=== PATIENT | male | born 1975 ===

== ENCOUNTER 2018-12-06 17:32 | Emergency (ER) | payer OTHER ==
[2018-12-06 17:44] VITALS: BP 170/87; PULSE 71; RESP 18; TEMP 98.8; O2SAT 98; BMI 32.8
[2018-12-06] MEDS ORDERED: Tetracaine 0.5% Ophth 2 ML BOTTLE OS ONE (18:20)
[2018-12-06] MEDS ORDERED: Fluorescein 1 mg Ophthalmic Strip OS ONE (18:21)
--- NOTE | 2018-12-06 18:42 | C.PDOC ---
History Of Present Illness 43 year old male presents to ED with complains of severe headache and pain and swelling to his left eye. Patient states that he fell at 3 pm today while walking outside. Patient reports that he felt "dazed" for 3-5 seconds and was able to get up. He states that he has been experiencing decreased vision in his left eye and is only able to see light and dark through it. Patient denies neck pain, chest pain, SOB, nausea, vomiting, numbness, and weakness. Time Seen by Provider: 12/06/18 18:06 Chief Complaint (Nursing): Eye Problem History Per: Patient History/Exam Limitations: no limitations Onset/Duration Of Symptoms: Hrs (3) Current Symptoms Are (Timing): Still Present Quality: "Pain" Associated Symptoms: Pain, Decreased Vision Past Medical History Reviewed: Historical Data, Nursing Documentation, Vital Signs Vital Signs: Last Vital Signs Temp 98.8 F 12/06/18 17:36 Pulse 71 12/06/18 17:36 Resp 18 12/06/18 17:36 BP 170/87 H 12/06/18 17:36 Pulse Ox 98 12/06/18 17:36 - Medical History PMH: No Chronic Diseases Surgical History: No Surg Hx Family History: States: Unknown Family Hx - Social History Hx Alcohol Use: Yes Hx Substance Use: No - Immunization History Hx Tetanus Toxoid Vaccination: No Hx Influenza Vaccination: No Hx Pneumococcal Vaccination: No Review Of Systems Eyes: Positive for: Pain (pain and swelling to the left eye), Vision Change (decreased vision ) Cardiovascular: Negative for: Chest Pain Respiratory: Negative for: Shortness of Breath Gastrointestinal: Negative for: Nausea, Vomiting Musculoskeletal: Negative for: Neck Pain Neurological: Positive for: Headache. Negative for: Weakness, Numbness Physical Exam - Physical Exam Appears: Non-toxic, No Acute Distress Skin: Normal Color, Warm, Dry Head: Atraumatic, Normacephalic Eye(s): right: Normal Inspection, PERRL, EOMI, left: Other (conjunctival injection, dilated pupil, moderate swelling) Nose: Normal Neck: Normal ROM, No Midline Cervical Tenderness, No Paracervical Tenderness, Supple Chest: Symmetrical, No Deformity, No Tenderness Cardiovascular: Rhythm Regular, No Murmur Respiratory: No Accessory Muscle Use, No Rales, No Rhonchi, No Wheezing Extremity: Capillary Refill (<2 seconds) Neurological/Psych: Oriented x3, Normal Speech, Normal Cognition, Normal Motor, Normal Sensation ED Course And Treatment O2 Sat by Pulse Oximetry: 98 (in RA) Pulse Ox Interpretation: Normal - CT Scan/US Head CT Other Rad Studies (CT/US): Interpreted By Me, Read By Radiologist CT/US Interpretation: IMPRESSION: No acute intracranial pathology identified. Left preseptal soft tissue swelling. Probable small debris within the nasal soft tissues. Orbits/facials CT Other Rad Studies (CT/US): Interpreted By Me, Read By Radiologist CT/US Interpretation: IMPRESSION: Diffuse left periorbital soft tissue swelling. No fracture. Globes are grossly normal by CT, however consider follow up with MRI Orbits if clinically warranted. Thank you for your kind referral of this patient. . Electronically signed on Dec 06, 2018 7:49:24 PM EDT by: Sam Jay M.D., M.B.A., Certified By [employer]. Fellowship Trained MRI and CT Specialist Medical Decision Making Medical Decision Making: Plan: Head CT Orbits/facials CT Fluorescein uptake test performed with ? uptake Progress: CT Head and CT orbits were negative. Spoke to . CT scan discussed.Advised to apply timolol drops and prednisolone drops now. Follow up with at 9:30 am tomorrow without fail. Timolol and Prednisolone Eye drops were placed in the eye by me. Disposition - Disposition Referrals: Zi Lowry MD [Staff Provider] - Disposition: HOME/ ROUTINE Disposition Time: 20:49 Condition: FAIR Additional Instructions: Follow up with at 9:30 am tomorrow without fail. Instructions: Eye Contusion (DC), Head Injury (ED) Forms: [employer]etch (Georgian) - Clinical Impression Clinical Impression: Blurred vision, Eye trauma - PA / MANAGER GROUP / Resident Statement MD/DO has reviewed & agrees with the documentation as recorded. (Loni Bowen) - Scribe Statement The provider has reviewed the documentation as recorded by the Scribe (Loni Bowen) All medical record entries made by the Scribe were at my direction and personally dictated by me. I have reviewed the chart and agree that the record accurately reflects my personal performance of the history, physical exam, medical decision making, and the department course for this patient. I have also personally directed, reviewed, and agree with the discharge instructions and disposition.
[2018-12-06] MEDS ORDERED: Tetracaine 0.5% Ophth (OR ONLY) ONE (18:47)
[2018-12-06] MEDS ORDERED: Fluorescein 1 mg Ophthalmic Strip ONE (18:47)
--- NOTE | 2018-12-06 18:48 | CT ---
Date of service: 12/06/2018 PROCEDURE: CT HEAD WITHOUT CONTRAST. HISTORY: fall, head injury, LOC, r/o bleed COMPARISON: Noncontrast head CT performed 10/09/12 TECHNIQUE: Axial computed tomography images were obtained through the head/brain without intravenous contrast. Radiation dose: Total exam DLP = 1118.26 mGy-cm. This CT exam was performed using one or more of the following dose reduction techniques: Automated exposure control, adjustment of the mA and/or kV according to patient size, and/or use of iterative reconstruction technique. FINDINGS: HEMORRHAGE: No intracranial hemorrhage. BRAIN: No mass effect or edema. The stern-white matter differentiation appears intact. Please note that MRI with diffusion imaging is more sensitive in the detection of acute ischemic event. VENTRICLES: No hydrocephalus. CALVARIUM: Unremarkable. PARANASAL SINUSES: Unremarkable as visualized. No significant inflammatory changes. MASTOID AIR CELLS: Unremarkable as visualized. No inflammatory changes. OTHER FINDINGS: Left preseptal soft tissue swelling. Small probable debris within the nasal soft tissues. IMPRESSION: No acute intracranial pathology identified. Left preseptal soft tissue swelling. Probable small debris within the nasal soft tissues.
[2018-12-06] MEDS ORDERED: PrednisoLONE 1% Opht Susp(5 ml) OS STA ×2 (20:04→20:24)
--- NOTE | 2018-12-06 22:16 | CT ---
Date of service: 12/06/2018 PROCEDURE: CT ORBITS WITHOUT CONTRAST. HISTORY: injury, to the Left eye, globe rupture, fracture COMPARISON: None available. TECHNIQUE: Axial CT images of the orbits were obtained. Coronal and sagittal reformats were generated. Radiation dose: Total exam DLP = 916.14 mGy-cm. This CT exam was performed using one or more of the following dose reduction techniques: Automated exposure control, adjustment of the mA and/or kV according to patient size, and/or use of iterative reconstruction technique. FINDINGS: RIGHT ORBIT: RIGHT BONY ORBIT: Normal. RIGHT INTRAORBITAL STRUCTURES: Globe: Normal. Extraocular muscles: Normal. Post septal space: Normal. Optic Nerve: Normal. Lacrimal Apparatus: Normal. RIGHT PRESEPTAL SOFT TISSUES: Normal. LEFT ORBIT: LEFT BONY ORBIT: Normal. LEFT INTRAORBITAL STRUCTURES: Globe: Normal. Extraocular muscles: Normal. Post septal space: Normal Optic Nerve: Normal. . Lacrimal Apparatus: Normal. LEFT PRESEPTAL SOFT TISSUES: Mild periorbital soft tissue swelling. OTHER: There is mild polypoid mucosal thickening in the maxillary sinuses and retention cyst/polyps in the right maxillary sinus. IMPRESSION: No acute nasal bone, orbital or maxillofacial fracture. Mild left periorbital soft tissue swelling. No acute orbital injury. A preliminary report was provided by [employer].
== END 2018-12-06 20:56 | disposition home or self-care (01) ==
LOC: C.ER 17:32
DX: S05.92XA Unspecified injury of left eye and orbit, initial encounter (principal); H53.8 Other visual disturbances; W19.XXXA Unspecified fall, initial encounter; Y93.01 Activity, walking, marching and hiking; Y92.480 Sidewalk as the place of occurrence of the external cause

== ENCOUNTER 2019-01-16 09:45 | Inpatient (IN) | payer OTHER ==
[2019-01-16 09:46] VITALS: BMI 32.8
[2019-01-16] MEDS ORDERED: Sodium Chloride 0.9% 1,000 ML IV ONE ×2 (10:19→10:20)
[2019-01-16] MEDS ORDERED: Sodium Chloride 0.9% 2,000 ML ONE (10:33)
[2019-01-16 10:44] LABS: BASO % 0.3 % (0.0-2.0); EOS % 0.2 % (0.0-4.0); HEMOGLOBIN 16.8 g/dL (12.0-18.0); LYMPH # 1.4 K/uL (1.0-4.3); LYMPH % 20.2 % (20.0-40.0); MEAN CORPUSCULAR HEMOGLOBIN 32.5 pg (27.0-31.0); MEAN CORPUSCULAR HGB CONC 35.3 g/dL (33.0-37.0); MEAN PLATELET VOLUME 11.7 fL (7.2-11.7); MONO # 0.3 K/uL (0.0-0.8); MONO % 4.8 % (0.0-10.0); NEUT # 5.2 K/uL (1.8-7.0); NEUT % 74.5 % (50.0-75.0); RBC 5.18 Mil/uL (4.40-5.90); RED CELL DISTRIBUTION WIDTH 12.8 % (11.5-14.5)
[2019-01-16 10:48] LABS: SQUAMOUS EPITHIAL < 1 /hpf (0-5); URINE BILIRUBIN NEGATIVE (NEGATIVE); URINE BLOOD NEGATIVE (NEGATIVE); URINE CLARITY Clear (Clear); URINE COLOR Yellow (YELLOW); URINE GLUCOSE (UA) 3+ mg/dL (Normal); URINE LEUKOCYTE ESTERASE NEG Leu/uL (Negative); URINE PROTEIN NEGATIVE (NEGATIVE); URINE UROBILINOGEN NORMAL mg/dL (0.2-1.0)
--- NOTE | 2019-01-16 10:52 | C.PDOC ---
History Of Present Illness 43 y/o male presents to the ER complaining of polydipsia and polyuria which has been present for the past 2 days. Patient states that he has been drinking plenty of fluids but he still feels thirsty. Patient denies having fever,chills, CP,SOB, nausea, vomiting, and abdominal pain. Chief Complaint (Nursing): High Blood Sugar History Per: Patient History/Exam Limitations: no limitations Onset/Duration Of Symptoms: Days Current Symptoms Are (Timing): Still Present Severity: Moderate Past Medical History Reviewed: Historical Data, Nursing Documentation, Vital Signs Vital Signs: Last Vital Signs Temp 99.3 F 01/16/19 09:48 Pulse 83 01/16/19 09:48 Resp 20 01/16/19 09:48 BP 161/93 H 01/16/19 09:48 Pulse Ox 98 01/16/19 09:48 Primary Care Provider: Non [facility] Provider, - Medical History PMH: No Chronic Diseases Other Surgeries: Hx of surgeries Family History: States: No Known Family Hx - Social History Hx Alcohol Use: Yes Hx Substance Use: No - Immunization History Hx Tetanus Toxoid Vaccination: No Hx Influenza Vaccination: No Hx Pneumococcal Vaccination: No Review Of Systems Except As Marked, All Systems Reviewed And Found Negative. Constitutional: Positive for: Other (polydipsia, polyuria). Negative for: Fever, Chills Cardiovascular: Negative for: Chest Pain Respiratory: Negative for: Shortness of Breath Gastrointestinal: Negative for: Nausea, Vomiting, Abdominal Pain Physical Exam - Physical Exam Appears: Non-toxic, No Acute Distress Skin: Normal Color, Warm, Dry Head: Atraumatic, Normacephalic Eye(s): bilateral: Normal Inspection Oral Mucosa: Dry (very dry) Neck: Supple Chest: Symmetrical Cardiovascular: Rhythm Regular Respiratory: Normal Breath Sounds, No Rales, No Rhonchi, No Wheezing Gastrointestinal/Abdominal: Soft, No Tenderness, No Guarding, No Rebound Neurological/Psych: Oriented x3, Normal Speech ED Course And Treatment - Laboratory Results Result Diagrams: 01/16/19 10:36 01/16/19 14:03 ECG: Interpreted By Me, Viewed By Me ECG Rhythm: Sinus Rhythm O2 Sat by Pulse Oximetry: 98 (RA) Pulse Ox Interpretation: Normal - Other Rad CXR X-Ray: Viewed By Me, Read By Radiologist Interpretation: Chest x-ray single frontal view. HISTORY: Hyperglycemia. COMPARISON: None available. Findings: No focal infiltrate or effusion. Heart size within normal limits. Degenerative changes in the spine. Impression: No focal infiltrate or effusion. Medical Decision Making Medical Decision Making: Plan: --Labs --UA --IV Fluids --Dextrose IV --Glucagon IM Updates: 11:[address]N Hoskins, hospitalist. Patient will be admitted under the service of Dr. Sameer Hoskins. Case discussed with Dr.R Hoskins in ICU. Disposition - Disposition - Scribe Statement The provider has reviewed the documentation as recorded by the Scribe [facility] Provider Attestation: All medical record entries made by the Scribe were at my direction and personally dictated by me. I have reviewed the chart and agree that the record accurately reflects my personal performance of the history, physical exam, medi tad decision making, and the department course for this patient. I have also personally directed, reviewed, and agree with the discharge instructions and disposition.
[2019-01-16 10:57] LABS: ABG ALLEN TEST POS; ARTERIAL BLOOD GAS HEMOGLOBIN 15.6 g/dL (11.7-17.4); ARTERIAL BLOOD GAS O2 SAT 99.1 % (95-98); ARTERIAL BLOOD GAS PCO2 28 mm/Hg (35-45); ARTERIAL BLOOD GAS PH 7.29 (7.35-7.45); ARTERIAL BLOOD GAS PO2 94 mm/Hg (80-100); ARTERIAL BLOOD GAS TCO2 14.4 mmol/L (22-28)
[2019-01-16 11:15] LABS: ALB/GLOB RATIO 1.4 (1.0-2.1); ALT/SGPT 61 U/L (21-72); AST/SGOT 51 U/L (17-59); BLOOD UREA NITROGEN 11 mg/dL (9-20); CALCIUM 10.1 mg/dl (8.6-10.4); GFR NON-AFRICAN AMERICAN > 60
[2019-01-16] MEDS ORDERED: Insulin Human Regular 100 UNIT in Sodium Chloride 0.9% 99 ML IV SCH (11:30)
[2019-01-16] MEDS ORDERED: Dextrose 50% SYRINGE Inj (50 ml) IV PRN (11:49)
[2019-01-16] MEDS ORDERED: Glucagon Recombinant 1 mg Inj IM PRN (11:49)
[2019-01-16] MEDS ORDERED: (Novolin R) Insulin Human Regular 100 units/ml vial IVP ONE (11:56)
[2019-01-16 12:19] LABS: BARBITURATES, UR NEGATIVE (NEGATIVE); BENZODIAZEPINES, UR NEGATIVE (NEGATIVE); OPIATES, UR NEGATIVE (NEGATIVE); PHENCYCLIDINE, UR NEGATIVE (NEGATIVE)
[2019-01-16] MEDS ORDERED: (Novolin R) Insulin Human Regular 100 units/ml vial ONE (12:29)
[2019-01-16] MEDS ORDERED: Potassium Chloride 30 MEQ in Sodium Chloride 0.9% 1,000 ML IV SCH (12:30)
--- NOTE | 2019-01-16 12:51 | RAD ---
Chest x-ray single frontal view HISTORY: Hyperglycemia. COMPARISON: None available. Findings: No focal infiltrate or effusion. Heart size within normal limits. Degenerative changes in the spine. Impression: No focal infiltrate or effusion.
[2019-01-16] MEDS: Insulin Human Regular 100 UNIT in Sodium Chloride 0.9% 99 ML IV SCH (13:40)
[2019-01-16 14:34] LABS: BLOOD UREA NITROGEN 10 mg/dL (9-20); CALCIUM 8.5 mg/dl (8.6-10.4); GFR NON-AFRICAN AMERICAN > 60
--- NOTE | 2019-01-16 14:59 | CP.PCM.CON ---
<Rosette Rowe - Last Filed: 01/16/19 15:20> History of Present Illness - History of Present Illness History of Present Illness: Rosette Rowe PGY1 H&P for Dr. Louie Hoskins Patient is a 43yo M with no reported PMH presenting to the ED for dry mouth. Patient reports 4 day history of dry mouth, increased thirst, and increased urination. He denies prior history of this. He reports associated fatigue. He tried taking advil at home which slightly helped his symptoms. He denies any diz ziness, loss of consciousness, blurry vision, headache, nausea, or vomiting. He denies any recent illness, sick contacts, or recent travel. He reports drinking sweet iced tea regularly and does not limit his diet from sugary foods. He denies shortness of breath, chest pain, or diarrhea. SxH: L knee surgery 2003 SocH: denies etoh, tobacco, or recreational drug use FamH: denies Allergies: NKDA Meds: none PMD: none Review of Systems - Review of Systems Review of Systems: 12 point ROS performed and negative other than what is stated in HPI Past Patient History - Past Social History Smoking Status: Never Smoked - PSYCHIATRIC Hx Substance Use: No - SURGICAL HISTORY Hx Surgeries: Yes Hx Orthopedic Surgery: Yes (left knee) - ANESTHESIA Hx Anesthesia: No Hx Anesthesia Reactions: No Meds Allergies/Adverse Reactions: Allergies Allergy/AdvReac Type Severity Reaction Status Date / Time No Known Allergies Allergy Verified 01/16/19 09:51 - Medications Medications: Current Medications Dextrose (Dextrose 50% Inj) 0 ml IV STAT PRN; Protocol PRN Reason: Hypoglycemia Protocol Dextrose (Glutose 15) 0 gm PO ONCE PRN; Protocol PRN Reason: Hypoglycemia Protocol Glucagon (Glucagen Diagnostic Kit) 0 mg IM STAT PRN; Protocol PRN Reason: Hypoglycemia Protocol Dextrose (Dextrose 5% In Water 1000 Ml) 1,000 mls @ 0 mls/hr IV .Q0M PRN; Protocol PRN Reason: Hypoglycemia Protocol Insulin Human Regular 100 unit (/ Sodium Chloride) 100 mls @ 9 mls/hr IV .Q11H7M [facility]; Protocol Last Titration: 01/16/19 14:29 Dose: 3 units/hr, 3 mls/hr Potassium Chloride 30 meq/ (Sodium Chloride) 1,015 mls @ 333 mls/hr IV .Q3H3M KATE Stop: 01/16/19 19:50 Last Admin: 01/16/19 13:40 Dose: 333 mls/hr Physical Exam - Constitutional Appears: Well, No Acute Distress - Head Exam Head Exam: ATRAUMATIC, NORMAL INSPECTION, NORMOCEPHALIC - Eye Exam Eye Exam: EOMI, Normal appearance, PERRL Pupil Exam: NORMAL ACCOMODATION - ENT Exam ENT Exam: Mucous Membranes Dry - Neck Exam Neck exam: Positive for: Normal Inspection - Respiratory Exam Respiratory Exam: Clear to Auscultation Bilateral, NORMAL BREATHING PATTERN. absent: Rales, Rhonchi, Wheezes - Cardiovascular Exam Cardiovascular Exam: REGULAR RHYTHM, +S1, +S2. absent: Gallop, Rubs, Systolic Murmur - GI/Abdominal Exam GI & Abdominal Exam: Normal Bowel Sounds, Soft. absent: Distended, Tenderness - Extremities Exam Extremities exam: Positive for: normal inspection. Negative for: pedal edema, tenderness - Back Exam Back exam: NORMAL INSPECTION - Neurological Exam Neurological exam: Alert, CN II-XII Intact, Normal Gait, Oriented x3, Reflexes Normal - Psychiatric Exam Psychiatric exam: Normal Affect, Normal Mood - Skin Skin Exam: Intact, Normal Color, Warm Results - Vital Signs Recent Vital Signs: Last Vital Signs Temp 98.6 F 01/16/19 11:21 Pulse 74 01/16/19 13:33 Resp 18 01/16/19 13:33 BP 115/68 01/16/19 13:33 Pulse Ox 99 01/16/19 13:33 - Labs Result Diagrams: 01/16/19 10:36 01/16/19 14:03 Labs: Laboratory Results - last 24 hr 01/16/19 01/16/19 01/16/19 09:55 10:36 10:36 WBC 7.0 RBC 5.18 Hgb 16.8 Hct 47.6 MCV 92.0 MCH 32.5 H MCHC 35.3 RDW 12.8 Plt Count 152 MPV 11.7 Neut % (Auto) 74.5 Lymph % (Auto) 20.2 [place] % (Auto) 4.8 Eos % (Auto) 0.2 Baso % (Auto) 0.3 Neut # (Auto) 5.2 Lymph # (Auto) 1.4 [place] # (Auto) 0.3 Eos # (Auto) 0.0 Baso # (Auto) 0.0 Puncture Site pCO2 pO2 HCO3 ABG pH ABG Total CO2 ABG O2 Saturation ABG Base Excess ABG Hemoglobin ABG Carboxyhemoglobin POC ABG HHb (Measured) ABG Methemoglobin Ramírez Test A-a O2 Difference Respiratory Index Hgb O2 Saturation FiO2 Sodium Potassium Chloride Carbon Dioxide Anion Gap BUN Creatinine Est GFR ( Amer) Est GFR (Non-Af Amer) POC Glucose (mg/dL) 406 H* Random Glucose Hemoglobin A1c Serum Osmolality Calcium Phosphorus Magnesium Total Bilirubin AST ALT Alkaline Phosphatase Troponin I NT-Pro-B Natriuret Pep Total Protein Albumin Globulin Albumin/Globulin Ratio TSH 3rd Generation Urine Color Yellow Urine Clarity Clear Urine pH 5.0 Ur Specific [place] 1.032 H Urine Protein Negative Urine Glucose (UA) 3+ H Urine Ketones 2+ H Urine Blood Negative Urine Nitrate Negative Urine Bilirubin Negative Urine Urobilinogen Normal Ur Leukocyte Esterase Neg Urine WBC (Auto) 2 Urine RBC (Auto) < 1 Ur Squamous Epith Cells < 1 Hyaline Casts 3-5 H Urine Opiates Screen Urine Methadone Screen Ur Barbiturates Screen Ur Phencyclidine Scrn Ur Amphetamines Screen U Benzodiazepines Scrn U Oth Cocaine Metabols U Cannabinoids Screen 01/16/19 01/16/19 01/16/19 10:36 10:51 11:41 WBC RBC Hgb Hct MCV MCH MCHC RDW Plt Count MPV Neut % (Auto) Lymph % (Auto) [place] % (Auto) Eos % (Auto) Baso % (Auto) Neut # (Auto) Lymph # (Auto) [place] # (Auto) Eos # (Auto) Baso # (Auto) Puncture Site Rra pCO2 28 L pO2 94 HCO3 16.0 L ABG pH 7.29 L ABG Total CO2 14.4 L ABG O2 Saturation 99.1 H ABG Base Excess -11.4 L ABG Hemoglobin 15.6 ABG Carboxyhemoglobin 2.1 H POC ABG HHb (Measured) 0.9 ABG Methemoglobin 0.9 Ramírez Test Pos A-a O2 Difference 21.0 Respiratory Index 0.2 Hgb O2 Saturation 96.1 FiO2 21.0 Sodium 137 Potassium 4.2 Chloride 98 Carbon Dioxide 17 L Anion Gap 26 H BUN 11 Creatinine 0.6 L Est GFR ( Amer) > 60 Est GFR (Non-Af Amer) > 60 POC Glucose (mg/dL) Random Glucose 442 H* Hemoglobin A1c 11.3 H Serum Osmolality Calcium 10.1 Phosphorus 5.1 H Magnesium 2.1 Total Bilirubin 1.3 AST 51 ALT 61 Alkaline Phosphatase 134 H Troponin I < 0.0120 NT-Pro-B Natriuret Pep 36.0 Total Protein 8.5 H Albumin 5.0 Globulin 3.5 Albumin/Globulin Ratio 1.4 TSH 3rd Generation 0.40 L Urine Color Urine Clarity Urine pH Ur Specific [place] Urine Protein Urine Glucose (UA) Urine Ketones Urine Blood Urine Nitrate Urine Bilirubin Urine Urobilinogen Ur Leukocyte Esterase Urine WBC (Auto) Urine RBC (Auto) Ur Squamous Epith Cells Hyaline Casts Urine Opiates Screen Urine Methadone Screen Ur Barbiturates Screen Ur Phencyclidine Scrn Ur Amphetamines Screen U Benzodiazepines Scrn U Oth Cocaine Metabols U Cannabinoids Screen 01/16/19 01/16/19 01/16/19 11:49 11:53 13:04 WBC RBC Hgb Hct MCV MCH MCHC RDW Plt Count MPV Neut % (Auto) Lymph % (Auto) [place] % (Auto) Eos % (Auto) Baso % (Auto) Neut # (Auto) Lymph # (Auto) [place] # (Auto) Eos # (Auto) Baso # (Auto) Puncture Site pCO2 pO2 HCO3 ABG pH ABG Total CO2 ABG O2 Saturation ABG Base Excess ABG Hemoglobin ABG Carboxyhemoglobin POC ABG HHb (Measured) ABG Methemoglobin Ramírez Test A-a O2 Difference Respiratory Index Hgb O2 Saturation FiO2 Sodium Potassium Chloride Carbon Dioxide Anion Gap BUN Creatinine Est GFR ( Amer) Est GFR (Non-Af Amer) POC Glucose (mg/dL) 362 H 284 H Random Glucose Hemoglobin A1c Serum Osmolality Calcium Phosphorus Magnesium Total Bilirubin AST ALT Alkaline Phosphatase Troponin I NT-Pro-B Natriuret Pep Total Protein Albumin Globulin Albumin/Globulin Ratio TSH 3rd Generation Urine Color Urine Clarity Urine pH Ur Specific [place] Urine Protein Urine Glucose (UA) Urine Ketones Urine Blood Urine Nitrate Urine Bilirubin Urine Urobilinogen Ur Leukocyte Esterase Urine WBC (Auto) Urine RBC (Auto) Ur Squamous Epith Cells Hyaline Casts Urine Opiates Screen Negative Urine Methadone Screen Negative Ur Barbiturates Screen Negative Ur Phencyclidine Scrn Negative Ur Amphetamines Screen Negative U Benzodiazepines Scrn Negative U Oth Cocaine Metabols Negative U Cannabinoids Screen Negative 01/16/19 01/16/19 01/16/19 13:37 14:03 14:03 WBC RBC Hgb Hct MCV MCH MCHC RDW Plt Count MPV Neut % (Auto) Lymph % (Auto) [place] % (Auto) Eos % (Auto) Baso % (Auto) Neut # (Auto) Lymph # (Auto) [place] # (Auto) Eos # (Auto) Baso # (Auto) Puncture Site pCO2 pO2 HCO3 ABG pH ABG Total CO2 ABG O2 Saturation ABG Base Excess ABG Hemoglobin ABG Carboxyhemoglobin POC ABG HHb (Measured) ABG Methemoglobin Ramírez Test A-a O2 Difference Respiratory Index Hgb O2 Saturation FiO2 Sodium 140 Potassium 4.4 Chloride 109 H Carbon Dioxide 15 L Anion Gap 20 BUN 10 Creatinine 0.4 L Est GFR ( Amer) > 60 Est GFR (Non-Af Amer) > 60 POC Glucose (mg/dL) 262 H Random Glucose 250 H D Hemoglobin A1c Serum Osmolality 309 H Calcium 8.5 L Phosphorus 3.1 Magnesium 2.0 Total Bilirubin AST ALT Alkaline Phosphatase Troponin I NT-Pro-B Natriuret Pep Total Protein Albumin Globulin Albumin/Globulin Ratio TSH 3rd Generation Urine Color Urine Clarity Urine pH Ur Specific [place] Urine Protein Urine Glucose (UA) Urine Ketones Urine Blood Urine Nitrate Urine Bilirubin Urine Urobilinogen Ur Leukocyte Esterase Urine WBC (Auto) Urine RBC (Auto) Ur Squamous Epith Cells Hyaline Casts Urine Opiates Screen Urine Methadone Screen Ur Barbiturates Screen Ur Phencyclidine Scrn Ur Amphetamines Screen U Benzodiazepines Scrn U Oth Cocaine Metabols U Cannabinoids Screen 01/16/19 14:26 WBC RBC Hgb Hct MCV MCH MCHC RDW Plt Count MPV Neut % (Auto) Lymph % (Auto) [place] % (Auto) Eos % (Auto) Baso % (Auto) Neut # (Auto) Lymph # (Auto) [place] # (Auto) Eos # (Auto) Baso # (Auto) Puncture Site pCO2 pO2 HCO3 ABG pH ABG Total CO2 ABG O2 Saturation ABG Base Excess ABG Hemoglobin ABG Carboxyhemoglobin POC ABG HHb (Measured) ABG Methemoglobin Ramírez Test A-a O2 Difference Respiratory Index Hgb O2 Saturation FiO2 Sodium Potassium Chloride Carbon Dioxide Anion Gap BUN Creatinine Est GFR ( Amer) Est GFR (Non-Af Amer) POC Glucose (mg/dL) 241 H Random Glucose Hemoglobin A1c Serum Osmolality Calcium Phosphorus Magnesium Total Bilirubin AST ALT Alkaline Phosphatase Troponin I NT-Pro-B Natriuret Pep Total Protein Albumin Globulin Albumin/Globulin Ratio TSH 3rd Generation Urine Color Urine Clarity Urine pH Ur Specific [place] Urine Protein Urine Glucose (UA) Urine Ketones Urine Blood Urine Nitrate Urine Bilirubin Urine Urobilinogen Ur Leukocyte Esterase Urine WBC (Auto) Urine RBC (Auto) Ur Squamous Epith Cells Hyaline Casts Urine Opiates Screen Urine Methadone Screen Ur Barbiturates Screen Ur Phencyclidine Scrn Ur Amphetamines Screen U Benzodiazepines Scrn U Oth Cocaine Metabols U Cannabinoids Screen Assessment & Plan - Assessment and Plan (Free Text) Assessment: Patient is a 43yo M with no reported PMH presenting to the ED for dry mouth. Admitted for DKA. Anion gap closed at this time. Plan: Neuro: - AAOx3 - GSC 15 - no focal deficits Cardiovascular: - f/u lipid panel - maintain normotension Pulm: - no active issues at this time - maintain SpO2>92% GI: - no active issues at this time - pepcid Endo: - DKA - rpt CMP: anion gap closed - glucose decreasing - insulin drip - K+ repletion - f/u rpt CMP Heme: - no active issues at this time - lovenox ppx PPX GI: pepcid DVT: lovenox, SCDs HHD Dispo: Patient hemodynamically stable at this time. Anion gap has closed. <Timi Hoskins - Last Filed: 01/17/19 20:07> Meds - Medications Medications: Current Medications Aspirin (Ecotrin) 81 mg PO DAILY [facility] Last Admin: 01/17/19 09:57 Dose: 81 mg Dextrose (Dextrose 50% Inj) 0 ml IV STAT PRN; Protocol PRN Reason: Hypoglycemia Protocol Dextrose (Glutose 15) 0 gm PO ONCE PRN; Protocol PRN Reason: Hypoglycemia Protocol Enoxaparin Sodium (Lovenox) 40 mg SC DAILY [facility] Last Admin: 01/17/19 09:57 Dose: 40 mg Famotidine (Pepcid) 20 mg PO DAILY [facility] Last Admin: 01/17/19 09:57 Dose: 20 mg Glipizide (Glucotrol) 10 mg PO ACBD [facility] Last Admin: 01/17/19 16:43 Dose: 10 mg Glucagon (Glucagen Diagnostic Kit) 0 mg IM STAT PRN; Protocol PRN Reason: Hypoglycemia Protocol Dextrose (Dextrose 5% In Water 1000 Ml) 1,000 mls @ 0 mls/hr IV .Q0M PRN; Protocol PRN Reason: Hypoglycemia Protocol Sodium Chloride (Sodium Chloride 0.45%) 1,000 mls @ 100 mls/hr IV .Q10H KATE Last Admin: 01/17/19 08:43 Dose: 100 mls/hr Insulin Human NPH (Novolin N) 14 unit SC HS KATE Insulin Human Regular (Novolin R) 0 unit SC ACHS KATE; Protocol Last Admin: 01/17/19 16:50 Dose: Not Given Metformin HCl (Glucophage) 500 mg PO BIDCC [facility]ATE Last Admin: 01/17/19 16:41 Dose: 500 mg Rosuvastatin Calcium (Crestor) 10 mg PO HS [facility] Results - Vital Signs Recent Vital Signs: Last Vital Signs Temp 97.9 F 01/17/19 16:00 Pulse 61 01/17/19 16:00 Resp 18 01/17/19 16:00 BP 98/64 L 01/17/19 16:00 Pulse Ox 100 01/17/19 16:00 - Labs Result Diagrams: 01/17/19 06:06 01/17/19 06:06 Labs: Laboratory Results - last 24 hr 01/16/19 01/16/19 01/16/19 17:03 19:10 20:02 WBC RBC Hgb Hct MCV MCH MCHC RDW Plt Count MPV Neut % (Auto) Lymph % (Auto) [place] % (Auto) Eos % (Auto) Baso % (Auto) Neut # (Auto) Lymph # (Auto) [place] # (Auto) Eos # (Auto) Baso # (Auto) Sodium Potassium Chloride Carbon Dioxide Anion Gap BUN Creatinine Est GFR ( Amer) Est GFR (Non-Af Amer) POC Glucose (mg/dL) 163 H 199 H 210 H Random Glucose Calcium Phosphorus Magnesium Total Bilirubin AST ALT Alkaline Phosphatase Total Protein Albumin Globulin Albumin/Globulin Ratio Triglycerides Cholesterol LDL Cholesterol Direct HDL Cholesterol Free T4 01/16/19 01/16/19 01/16/19 21:07 21:23 22:06 WBC RBC Hgb Hct MCV MCH MCHC RDW Plt Count MPV Neut % (Auto) Lymph % (Auto) [place] % (Auto) Eos % (Auto) Baso % (Auto) Neut # (Auto) Lymph # (Auto) [place] # (Auto) Eos # (Auto) Baso # (Auto) Sodium 136 Potassium 3.5 L Chloride 108 H Carbon Dioxide 20 L Anion Gap 11 BUN 10 Creatinine 0.4 L Est GFR ( Amer) > 60 Est GFR (Non-Af Amer) > 60 POC Glucose (mg/dL) 212 H 246 H Random Glucose 236 H D Calcium 8.4 L Phosphorus 2.4 L Magnesium 2.0 Total Bilirubin 0.8 AST 56 ALT 47 Alkaline Phosphatase 81 Total Protein 6.2 L Albumin 3.5 D Globulin 2.7 Albumin/Globulin Ratio 1.3 Triglycerides Cholesterol LDL Cholesterol Direct HDL Cholesterol Free T4 01/16/19 01/16/19 01/17/19 23:01 23:39 01:00 WBC RBC Hgb Hct MCV MCH MCHC RDW Plt Count MPV Neut % (Auto) Lymph % (Auto) [place] % (Auto) Eos % (Auto) Baso % (Auto) Neut # (Auto) Lymph # (Auto) [place] # (Auto) Eos # (Auto) Baso # (Auto) Sodium 136 Potassium 3.4 L Chloride 107 Carbon Dioxide 23 Anion Gap 9 L BUN 11 Creatinine 0.4 L Est GFR ( Amer) > 60 Est GFR (Non-Af Amer) > 60 POC Glucose (mg/dL) 217 H 222 H Random Glucose 228 H Calcium 8.5 L Phosphorus 2.4 L Magnesium 2.0 Total Bilirubin AST ALT Alkaline Phosphatase Total Protein Albumin Globulin Albumin/Globulin Ratio Triglycerides Cholesterol LDL Cholesterol Direct HDL Cholesterol Free T4 01/17/19 01/17/19 01/17/19 01:12 02:10 03:12 WBC RBC Hgb Hct MCV MCH MCHC RDW Plt Count MPV Neut % (Auto) Lymph % (Auto) [place] % (Auto) Eos % (Auto) Baso % (Auto) Neut # (Auto) Lymph # (Auto) [place] # (Auto) Eos # (Auto) Baso # (Auto) Sodium Potassium Chloride Carbon Dioxide Anion Gap BUN Creatinine Est GFR ( Amer) Est GFR (Non-Af Amer) POC Glucose (mg/dL) 235 H 243 H 235 H Random Glucose Calcium Phosphorus Magnesium Total Bilirubin AST ALT Alkaline Phosphatase Total Protein Albumin Globulin Albumin/Globulin Ratio Triglycerides Cholesterol LDL Cholesterol Direct HDL Cholesterol Free T4 01/17/19 01/17/19 01/17/19 05:01 06:06 06:06 WBC 6.1 RBC 4.42 Hgb 14.0 D Hct 40.1 MCV 90.7 MCH 31.6 H MCHC 34.9 RDW 12.7 Plt Count 124 L D MPV 11.3 Neut % (Auto) 56.3 Lymph % (Auto) 34.4 [place] % (Auto) 6.4 Eos % (Auto) 2.7 Baso % (Auto) 0.2 Neut # (Auto) 3.5 Lymph # (Auto) 2.1 [place] # (Auto) 0.4 Eos # (Auto) 0.2 Baso # (Auto) 0.0 Sodium 137 Potassium 3.7 Chloride 109 H Carbon Dioxide 21 L Anion Gap 12 BUN 11 Creatinine 0.3 L Est GFR ( Amer) > 60 Est GFR (Non-Af Amer) > 60 POC Glucose (mg/dL) 235 H Random Glucose 212 H Calcium 8.3 L Phosphorus 2.2 L Magnesium 2.0 Total Bilirubin 0.7 AST 45 ALT 43 Alkaline Phosphatase 78 Total Protein 5.9 L Albumin 3.5 Globulin 2.3 Albumin/Globulin Ratio 1.5 Triglycerides Cholesterol LDL Cholesterol Direct HDL Cholesterol Free T4 01/17/19 01/17/19 06:06 06:06 WBC RBC Hgb Hct MCV MCH MCHC RDW Plt Count MPV Neut % (Auto) Lymph % (Auto) [place] % (Auto) Eos % (Auto) Baso % (Auto) Neut # (Auto) Lymph # (Auto) [place] # (Auto) Eos # (Auto) Baso # (Auto) Sodium Potassium Chloride Carbon Dioxide Anion Gap BUN Creatinine Est GFR ( Amer) Est GFR (Non-Af Amer) POC Glucose (mg/dL) Random Glucose Calcium Phosphorus Magnesium Total Bilirubin AST ALT Alkaline Phosphatase Total Protein Albumin Globulin Albumin/Globulin Ratio Triglycerides 109 Cholesterol 161 LDL Cholesterol Direct 114 HDL Cholesterol 44 Free T4 0.99 Assessment & Plan - Assessment and Plan (Free Text) Plan: New onset DKA -continue DKA protocol -endocrin consult -remains hemodynamically stable -check and replace electrolytes - Date & Time Date: 01/17/19 Time: 20:07
--- NOTE | 2019-01-16 15:22 | CP.PCM.HP ---
<MichellecamiloRosette - Last Filed: 01/16/19 15:24> History of Present Illness - History of Present Illness History of Present Illness: Palmaadamfederico Soledad PGY1 H&P for Dr. Louie Hoskins Patient is a 43yo M with no reported PMH presenting to the ED for dry mouth. Patient reports 4 day history of dry mouth, increased thirst, and increased urination. He denies prior history of this. He reports associated fatigue. He tried taking advil at home which slightly helped his symptoms. He denies any diz ziness, loss of consciousness, blurry vision, headache, nausea, or vomiting. He denies any recent illness, sick contacts, or recent travel. He reports drinking sweet iced tea regularly and does not limit his diet from sugary foods. He denies shortness of breath, chest pain, or diarrhea. SxH: L knee surgery 2003 SocH: denies etoh, tobacco, or recreational drug use FamH: denies Allergies: NKDA Meds: none PMD: none Present on Admission - Present on Admission Any Indicators Present on Admission: Yes History of Uncontrolled Diabetes: Yes Review of Systems - Review of Systems Review of Systems: 12 point ROS reviewed and negative other than what is stated in HPI Past Patient History - Past Social History Smoking Status: Never Smoked - PSYCHIATRIC Hx Substance Use: No - SURGICAL HISTORY Hx Surgeries: Yes Hx Orthopedic Surgery: Yes (left knee) - ANESTHESIA Hx Anesthesia: No Hx Anesthesia Reactions: No Meds Allergies/Adverse Reactions: Allergies Allergy/AdvReac Type Severity Reaction Status Date / Time No Known Allergies Allergy Verified 01/16/19 09:51 Physical Exam - Constitutional Appears: Well, No Acute Distress - Head Exam Head Exam: ATRAUMATIC, NORMAL INSPECTION, NORMOCEPHALIC - Eye Exam Eye Exam: EOMI, Normal appearance, PERRL - ENT Exam ENT Exam: Mucous Membranes Dry - Neck Exam Neck exam: Positive for: Normal Inspection - Respiratory Exam Respiratory Exam: Clear to Auscultation Bilateral, NORMAL BREATHING PATTERN. absent: Rales, Rhonchi, Wheezes - Cardiovascular Exam Cardiovascular Exam: REGULAR RHYTHM, +S1, +S2. absent: Gallop, Rubs, Systolic Murmur - GI/Abdominal Exam GI & Abdominal Exam: Normal Bowel Sounds, Soft. absent: Tenderness - Extremities Exam Extremities exam: Positive for: normal inspection - Neurological Exam Neurological exam: Alert, CN II-XII Intact, Normal Gait, Oriented x3 - Psychiatric Exam Psychiatric exam: Normal Affect, Normal Mood - Skin Skin Exam: Intact, Normal Color, Warm Results - Vital Signs Recent Vital Signs: Last Vital Signs Temp 98.6 F 01/16/19 11:21 Pulse 74 01/16/19 13:33 Resp 18 01/16/19 13:33 BP 115/68 01/16/19 13:33 Pulse Ox 99 01/16/19 13:33 - Labs Result Diagrams: 01/16/19 10:36 01/16/19 14:03 Labs: Laboratory Results - last 24 hr 01/16/19 01/16/19 01/16/19 09:55 10:36 10:36 WBC 7.0 RBC 5.18 Hgb 16.8 Hct 47.6 MCV 92.0 MCH 32.5 H MCHC 35.3 RDW 12.8 Plt Count 152 MPV 11.7 Neut % (Auto) 74.5 Lymph % (Auto) 20.2 Ware % (Auto) 4.8 Eos % (Auto) 0.2 Baso % (Auto) 0.3 Neut # (Auto) 5.2 Lymph # (Auto) 1.4 Ware # (Auto) 0.3 Eos # (Auto) 0.0 Baso # (Auto) 0.0 Puncture Site pCO2 pO2 HCO3 ABG pH ABG Total CO2 ABG O2 Saturation ABG Base Excess ABG Hemoglobin ABG Carboxyhemoglobin POC ABG HHb (Measured) ABG Methemoglobin Ramírez Test A-a O2 Difference Respiratory Index Hgb O2 Saturation FiO2 Sodium Potassium Chloride Carbon Dioxide Anion Gap BUN Creatinine Est GFR ( Amer) Est GFR (Non-Af Amer) POC Glucose (mg/dL) 406 H* Random Glucose Hemoglobin A1c Serum Osmolality Calcium Phosphorus Magnesium Total Bilirubin AST ALT Alkaline Phosphatase Troponin I NT-Pro-B Natriuret Pep Total Protein Albumin Globulin Albumin/Globulin Ratio TSH 3rd Generation Urine Color Yellow Urine Clarity Clear Urine pH 5.0 Ur Specific Winton 1.032 H Urine Protein Negative Urine Glucose (UA) 3+ H Urine Ketones 2+ H Urine Blood Negative Urine Nitrate Negative Urine Bilirubin Negative Urine Urobilinogen Normal Ur Leukocyte Esterase Neg Urine WBC (Auto) 2 Urine RBC (Auto) < 1 Ur Squamous Epith Cells < 1 Hyaline Casts 3-5 H Urine Opiates Screen Urine Methadone Screen Ur Barbiturates Screen Ur Phencyclidine Scrn Ur Amphetamines Screen U Benzodiazepines Scrn U Oth Cocaine Metabols U Cannabinoids Screen 01/16/19 01/16/19 01/16/19 10:36 10:51 11:41 WBC RBC Hgb Hct MCV MCH MCHC RDW Plt Count MPV Neut % (Auto) Lymph % (Auto) Ware % (Auto) Eos % (Auto) Baso % (Auto) Neut # (Auto) Lymph # (Auto) Ware # (Auto) Eos # (Auto) Baso # (Auto) Puncture Site Rra pCO2 28 L pO2 94 HCO3 16.0 L ABG pH 7.29 L ABG Total CO2 14.4 L ABG O2 Saturation 99.1 H ABG Base Excess -11.4 L ABG Hemoglobin 15.6 ABG Carboxyhemoglobin 2.1 H POC ABG HHb (Measured) 0.9 ABG Methemoglobin 0.9 Ramírez Test Pos A-a O2 Difference 21.0 Respiratory Index 0.2 Hgb O2 Saturation 96.1 FiO2 21.0 Sodium 137 Potassium 4.2 Chloride 98 Carbon Dioxide 17 L Anion Gap 26 H BUN 11 Creatinine 0.6 L Est GFR ( Amer) > 60 Est GFR (Non-Af Amer) > 60 POC Glucose (mg/dL) Random Glucose 442 H* Hemoglobin A1c 11.3 H Serum Osmolality Calcium 10.1 Phosphorus 5.1 H Magnesium 2.1 Total Bilirubin 1.3 AST 51 ALT 61 Alkaline Phosphatase 134 H Troponin I < 0.0120 NT-Pro-B Natriuret Pep 36.0 Total Protein 8.5 H Albumin 5.0 Globulin 3.5 Albumin/Globulin Ratio 1.4 TSH 3rd Generation 0.40 L Urine Color Urine Clarity Urine pH Ur Specific [place] Urine Protein Urine Glucose (UA) Urine Ketones Urine Blood Urine Nitrate Urine Bilirubin Urine Urobilinogen Ur Leukocyte Esterase Urine WBC (Auto) Urine RBC (Auto) Ur Squamous Epith Cells Hyaline Casts Urine Opiates Screen Urine Methadone Screen Ur Barbiturates Screen Ur Phencyclidine Scrn Ur Amphetamines Screen U Benzodiazepines Scrn U Oth Cocaine Metabols U Cannabinoids Screen 01/16/19 01/16/19 01/16/19 11:49 11:53 13:04 WBC RBC Hgb Hct MCV MCH MCHC RDW Plt Count MPV Neut % (Auto) Lymph % (Auto) Ware % (Auto) Eos % (Auto) Baso % (Auto) Neut # (Auto) Lymph # (Auto) Ware # (Auto) Eos # (Auto) Baso # (Auto) Puncture Site pCO2 pO2 HCO3 ABG pH ABG Total CO2 ABG O2 Saturation ABG Base Excess ABG Hemoglobin ABG Carboxyhemoglobin POC ABG HHb (Measured) ABG Methemoglobin Ramírez Test A-a O2 Difference Respiratory Index Hgb O2 Saturation FiO2 Sodium Potassium Chloride Carbon Dioxide Anion Gap BUN Creatinine Est GFR ( Amer) Est GFR (Non-Af Amer) POC Glucose (mg/dL) 362 H 284 H Random Glucose Hemoglobin A1c Serum Osmolality Calcium Phosphorus Magnesium Total Bilirubin AST ALT Alkaline Phosphatase Troponin I NT-Pro-B Natriuret Pep Total Protein Albumin Globulin Albumin/Globulin Ratio TSH 3rd Generation Urine Color Urine Clarity Urine pH Ur Specific [place] Urine Protein Urine Glucose (UA) Urine Ketones Urine Blood Urine Nitrate Urine Bilirubin Urine Urobilinogen Ur Leukocyte Esterase Urine WBC (Auto) Urine RBC (Auto) Ur Squamous Epith Cells Hyaline Casts Urine Opiates Screen Negative Urine Methadone Screen Negative Ur Barbiturates Screen Negative Ur Phencyclidine Scrn Negative Ur Amphetamines Screen Negative U Benzodiazepines Scrn Negative U Oth Cocaine Metabols Negative U Cannabinoids Screen Negative 01/16/19 01/16/19 01/16/19 13:37 14:03 14:03 WBC RBC Hgb Hct MCV MCH MCHC RDW Plt Count MPV Neut % (Auto) Lymph % (Auto) Ware % (Auto) Eos % (Auto) Baso % (Auto) Neut # (Auto) Lymph # (Auto) Ware # (Auto) Eos # (Auto) Baso # (Auto) Puncture Site pCO2 pO2 HCO3 ABG pH ABG Total CO2 ABG O2 Saturation ABG Base Excess ABG Hemoglobin ABG Carboxyhemoglobin POC ABG HHb (Measured) ABG Methemoglobin Ramírez Test A-a O2 Difference Respiratory Index Hgb O2 Saturation FiO2 Sodium 140 Potassium 4.4 Chloride 109 H Carbon Dioxide 15 L Anion Gap 20 BUN 10 Creatinine 0.4 L Est GFR ( Amer) > 60 Est GFR (Non-Af Amer) > 60 POC Glucose (mg/dL) 262 H Random Glucose 250 H D Hemoglobin A1c Serum Osmolality 309 H Calcium 8.5 L Phosphorus 3.1 Magnesium 2.0 Total Bilirubin AST ALT Alkaline Phosphatase Troponin I NT-Pro-B Natriuret Pep Total Protein Albumin Globulin Albumin/Globulin Ratio TSH 3rd Generation Urine Color Urine Clarity Urine pH Ur Specific [place] Urine Protein Urine Glucose (UA) Urine Ketones Urine Blood Urine Nitrate Urine Bilirubin Urine Urobilinogen Ur Leukocyte Esterase Urine WBC (Auto) Urine RBC (Auto) Ur Squamous Epith Cells Hyaline Casts Urine Opiates Screen Urine Methadone Screen Ur Barbiturates Screen Ur Phencyclidine Scrn Ur Amphetamines Screen U Benzodiazepines Scrn U Oth Cocaine Metabols U Cannabinoids Screen 01/16/19 01/16/19 14:26 15:12 WBC RBC Hgb Hct MCV MCH MCHC RDW Plt Count MPV Neut % (Auto) Lymph % (Auto) Ware % (Auto) Eos % (Auto) Baso % (Auto) Neut # (Auto) Lymph # (Auto) Ware # (Auto) Eos # (Auto) Baso # (Auto) Puncture Site pCO2 pO2 HCO3 ABG pH ABG Total CO2 ABG O2 Saturation ABG Base Excess ABG Hemoglobin ABG Carboxyhemoglobin POC ABG HHb (Measured) ABG Methemoglobin Ramírez Test A-a O2 Difference Respiratory Index Hgb O2 Saturation FiO2 Sodium Potassium Chloride Carbon Dioxide Anion Gap BUN Creatinine Est GFR ( Amer) Est GFR (Non-Af Amer) POC Glucose (mg/dL) 241 H 236 H Random Glucose Hemoglobin A1c Serum Osmolality Calcium Phosphorus Magnesium Total Bilirubin AST ALT Alkaline Phosphatase Troponin I NT-Pro-B Natriuret Pep Total Protein Albumin Globulin Albumin/Globulin Ratio TSH 3rd Generation Urine Color Urine Clarity Urine pH Ur Specific [place] Urine Protein Urine Glucose (UA) Urine Ketones Urine Blood Urine Nitrate Urine Bilirubin Urine Urobilinogen Ur Leukocyte Esterase Urine WBC (Auto) Urine RBC (Auto) Ur Squamous Epith Cells Hyaline Casts Urine Opiates Screen Urine Methadone Screen Ur Barbiturates Screen Ur Phencyclidine Scrn Ur Amphetamines Screen U Benzodiazepines Scrn U Oth Cocaine Metabols U Cannabinoids Screen Assessment & Plan - Assessment and Plan (Free Text) Assessment: Patient is a 43yo M with no reported PMH presenting to the ED for dry mouth. A dmitted for DKA. Anion gap closed at this time. Plan: Neuro: - AAOx3 - GSC 15 - no focal deficits Cardiovascular: - f/u lipid panel - maintain normotension Pulm: - no active issues at this time - maintain SpO2>92% GI: - no active issues at this time - pepcid Endo: - DKA - rpt CMP: anion gap closed - glucose decreasing - insulin drip - K+ repletion - f/u rpt CMP Heme: - no active issues at this time - lovenox ppx PPX GI: pepcid DVT: lovenox, SCDs HHD Dispo: Patient hemodynamically stable at this time. Anion gap has closed. <Miguelito Hoskins - Last Filed: 01/16/19 18:49> Results - Vital Signs Recent Vital Signs: Last Vital Signs Temp 98.9 F 01/16/19 15:34 Pulse 67 01/16/19 15:34 Resp 12 01/16/19 15:34 BP 107/67 01/16/19 15:34 Pulse Ox 98 01/16/19 16:07 - Labs Result Diagrams: 01/16/19 10:36 01/16/19 18:14 Labs: Laboratory Results - last 24 hr 01/16/19 01/16/19 01/16/19 09:55 10:36 10:36 WBC 7.0 RBC 5.18 Hgb 16.8 Hct 47.6 MCV 92.0 MCH 32.5 H MCHC 35.3 RDW 12.8 Plt Count 152 MPV 11.7 Neut % (Auto) 74.5 Lymph % (Auto) 20.2 Ware % (Auto) 4.8 Eos % (Auto) 0.2 Baso % (Auto) 0.3 Neut # (Auto) 5.2 Lymph # (Auto) 1.4 Ware # (Auto) 0.3 Eos # (Auto) 0.0 Baso # (Auto) 0.0 Puncture Site pCO2 pO2 HCO3 ABG pH ABG Total CO2 ABG O2 Saturation ABG Base Excess ABG Hemoglobin ABG Carboxyhemoglobin POC ABG HHb (Measured) ABG Methemoglobin Ramírez Test A-a O2 Difference Respiratory Index Hgb O2 Saturation FiO2 Sodium Potassium Chloride Carbon Dioxide Anion Gap BUN Creatinine Est GFR ( Amer) Est GFR (Non-Af Amer) POC Glucose (mg/dL) 406 H* Random Glucose Hemoglobin A1c Serum Osmolality Calcium Phosphorus Magnesium Total Bilirubin AST ALT Alkaline Phosphatase Troponin I NT-Pro-B Natriuret Pep Total Protein Albumin Globulin Albumin/Globulin Ratio TSH 3rd Generation Urine Color Yellow Urine Clarity Clear Urine pH 5.0 Ur Specific [place] 1.032 H Urine Protein Negative Urine Glucose (UA) 3+ H Urine Ketones 2+ H Urine Blood Negative Urine Nitrate Negative Urine Bilirubin Negative Urine Urobilinogen Normal Ur Leukocyte Esterase Neg Urine WBC (Auto) 2 Urine RBC (Auto) < 1 Ur Squamous Epith Cells < 1 Hyaline Casts 3-5 H Urine Opiates Screen Urine Methadone Screen Ur Barbiturates Screen Ur Phencyclidine Scrn Ur Amphetamines Screen U Benzodiazepines Scrn U Oth Cocaine Metabols U Cannabinoids Screen 01/16/19 01/16/19 01/16/19 10:36 10:51 11:41 WBC RBC Hgb Hct MCV MCH MCHC RDW Plt Count MPV Neut % (Auto) Lymph % (Auto) Ware % (Auto) Eos % (Auto) Baso % (Auto) Neut # (Auto) Lymph # (Auto) Ware # (Auto) Eos # (Auto) Baso # (Auto) Puncture Site Rra pCO2 28 L pO2 94 HCO3 16.0 L ABG pH 7.29 L ABG Total CO2 14.4 L ABG O2 Saturation 99.1 H ABG Base Excess -11.4 L ABG Hemoglobin 15.6 ABG Carboxyhemoglobin 2.1 H POC ABG HHb (Measured) 0.9 ABG Methemoglobin 0.9 Ramírez Test Pos A-a O2 Difference 21.0 Respiratory Index 0.2 Hgb O2 Saturation 96.1 FiO2 21.0 Sodium 137 Potassium 4.2 Chloride 98 Carbon Dioxide 17 L Anion Gap 26 H BUN 11 Creatinine 0.6 L Est GFR ( Amer) > 60 Est GFR (Non-Af Amer) > 60 POC Glucose (mg/dL) Random Glucose 442 H* Hemoglobin A1c 11.3 H Serum Osmolality Calcium 10.1 Phosphorus 5.1 H Magnesium 2.1 Total Bilirubin 1.3 AST 51 ALT 61 Alkaline Phosphatase 134 H Troponin I < 0.0120 NT-Pro-B Natriuret Pep 36.0 Total Protein 8.5 H Albumin 5.0 Globulin 3.5 Albumin/Globulin Ratio 1.4 TSH 3rd Generation 0.40 L Urine Color Urine Clarity Urine pH Ur Specific [place] Urine Protein Urine Glucose (UA) Urine Ketones Urine Blood Urine Nitrate Urine Bilirubin Urine Urobilinogen Ur Leukocyte Esterase Urine WBC (Auto) Urine RBC (Auto) Ur Squamous Epith Cells Hyaline Casts Urine Opiates Screen Urine Methadone Screen Ur Barbiturates Screen Ur Phencyclidine Scrn Ur Amphetamines Screen U Benzodiazepines Scrn U Oth Cocaine Metabols U Cannabinoids Screen 01/16/19 01/16/19 01/16/19 11:49 11:53 13:04 WBC RBC Hgb Hct MCV MCH MCHC RDW Plt Count MPV Neut % (Auto) Lymph % (Auto) Ware % (Auto) Eos % (Auto) Baso % (Auto) Neut # (Auto) Lymph # (Auto) Ware # (Auto) Eos # (Auto) Baso # (Auto) Puncture Site pCO2 pO2 HCO3 ABG pH ABG Total CO2 ABG O2 Saturation ABG Base Excess ABG Hemoglobin ABG Carboxyhemoglobin POC ABG HHb (Measured) ABG Methemoglobin Ramírez Test A-a O2 Difference Respiratory Index Hgb O2 Saturation FiO2 Sodium Potassium Chloride Carbon Dioxide Anion Gap BUN Creatinine Est GFR ( Amer) Est GFR (Non-Af Amer) POC Glucose (mg/dL) 362 H 284 H Random Glucose Hemoglobin A1c Serum Osmolality Calcium Phosphorus Magnesium Total Bilirubin AST ALT Alkaline Phosphatase Troponin I NT-Pro-B Natriuret Pep Total Protein Albumin Globulin Albumin/Globulin Ratio TSH 3rd Generation Urine Color Urine Clarity Urine pH Ur Specific [place] Urine Protein Urine Glucose (UA) Urine Ketones Urine Blood Urine Nitrate Urine Bilirubin Urine Urobilinogen Ur Leukocyte Esterase Urine WBC (Auto) Urine RBC (Auto) Ur Squamous Epith Cells Hyaline Casts Urine Opiates Screen Negative Urine Methadone Screen Negative Ur Barbiturates Screen Negative Ur Phencyclidine Scrn Negative Ur Amphetamines Screen Negative U Benzodiazepines Scrn Negative U Oth Cocaine Metabols Negative U Cannabinoids Screen Negative 01/16/19 01/16/19 01/16/19 13:37 14:03 14:03 WBC RBC Hgb Hct MCV MCH MCHC RDW Plt Count MPV Neut % (Auto) Lymph % (Auto) Ware % (Auto) Eos % (Auto) Baso % (Auto) Neut # (Auto) Lymph # (Auto) Ware # (Auto) Eos # (Auto) Baso # (Auto) Puncture Site pCO2 pO2 HCO3 ABG pH ABG Total CO2 ABG O2 Saturation ABG Base Excess ABG Hemoglobin ABG Carboxyhemoglobin POC ABG HHb (Measured) ABG Methemoglobin Ramírez Test A-a O2 Difference Respiratory Index Hgb O2 Saturation FiO2 Sodium 140 Potassium 4.4 Chloride 109 H Carbon Dioxide 15 L Anion Gap 20 BUN 10 Creatinine 0.4 L Est GFR ( Amer) > 60 Est GFR (Non-Af Amer) > 60 POC Glucose (mg/dL) 262 H Random Glucose 250 H D Hemoglobin A1c Serum Osmolality 309 H Calcium 8.5 L Phosphorus 3.1 Magnesium 2.0 Total Bilirubin AST ALT Alkaline Phosphatase Troponin I NT-Pro-B Natriuret Pep Total Protein Albumin Globulin Albumin/Globulin Ratio TSH 3rd Generation Urine Color Urine Clarity Urine pH Ur Specific [place] Urine Protein Urine Glucose (UA) Urine Ketones Urine Blood Urine Nitrate Urine Bilirubin Urine Urobilinogen Ur Leukocyte Esterase Urine WBC (Auto) Urine RBC (Auto) Ur Squamous Epith Cells Hyaline Casts Urine Opiates Screen Urine Methadone Screen Ur Barbiturates Screen Ur Phencyclidine Scrn Ur Amphetamines Screen U Benzodiazepines Scrn U Oth Cocaine Metabols U Cannabinoids Screen 01/16/19 01/16/19 01/16/19 14:26 15:12 16:05 WBC RBC Hgb Hct MCV MCH MCHC RDW Plt Count MPV Neut % (Auto) Lymph % (Auto) Ware % (Auto) Eos % (Auto) Baso % (Auto) Neut # (Auto) Lymph # (Auto) Ware # (Auto) Eos # (Auto) Baso # (Auto) Puncture Site pCO2 pO2 HCO3 ABG pH ABG Total CO2 ABG O2 Saturation ABG Base Excess ABG Hemoglobin ABG Carboxyhemoglobin POC ABG HHb (Measured) ABG Methemoglobin Ramírez Test A-a O2 Difference Respiratory Index Hgb O2 Saturation FiO2 Sodium Potassium Chloride Carbon Dioxide Anion Gap BUN Creatinine Est GFR ( Amer) Est GFR (Non-Af Amer) POC Glucose (mg/dL) 241 H 236 H 225 H Random Glucose Hemoglobin A1c Serum Osmolality Calcium Phosphorus Magnesium Total Bilirubin AST ALT Alkaline Phosphatase Troponin I NT-Pro-B Natriuret Pep Total Protein Albumin Globulin Albumin/Globulin Ratio TSH 3rd Generation Urine Color Urine Clarity Urine pH Ur Specific [place] Urine Protein Urine Glucose (UA) Urine Ketones Urine Blood Urine Nitrate Urine Bilirubin Urine Urobilinogen Ur Leukocyte Esterase Urine WBC (Auto) Urine RBC (Auto) Ur Squamous Epith Cells Hyaline Casts Urine Opiates Screen Urine Methadone Screen Ur Barbiturates Screen Ur Phencyclidine Scrn Ur Amphetamines Screen U Benzodiazepines Scrn U Oth Cocaine Metabols U Cannabinoids Screen 01/16/19 01/16/19 17:14 18:14 WBC RBC Hgb Hct MCV MCH MCHC RDW Plt Count MPV Neut % (Auto) Lymph % (Auto) Ware % (Auto) Eos % (Auto) Baso % (Auto) Neut # (Auto) Lymph # (Auto) Ware # (Auto) Eos # (Auto) Baso # (Auto) Puncture Site pCO2 pO2 HCO3 ABG pH ABG Total CO2 ABG O2 Saturation ABG Base Excess ABG Hemoglobin ABG Carboxyhemoglobin POC ABG HHb (Measured) ABG Methemoglobin Ramírez Test A-a O2 Difference Respiratory Index Hgb O2 Saturation FiO2 Sodium 138 137 Potassium 3.8 3.8 Chloride 110 H 109 H Carbon Dioxide 19 L 19 L Anion Gap 12 13 BUN 9 10 Creatinine 0.4 L 0.4 L Est GFR ( Amer) > 60 > 60 Est GFR (Non-Af Amer) > 60 > 60 POC Glucose (mg/dL) Random Glucose 182 H D 166 H Hemoglobin A1c Serum Osmolality Calcium 8.8 8.4 L Phosphorus 2.4 L 2.4 L Magnesium 2.0 1.9 Total Bilirubin AST ALT Alkaline Phosphatase Troponin I NT-Pro-B Natriuret Pep Total Protein Albumin Globulin Albumin/Globulin Ratio TSH 3rd Generation Urine Color Urine Clarity Urine pH Ur Specific [place] Urine Protein Urine Glucose (UA) Urine Ketones Urine Blood Urine Nitrate Urine Bilirubin Urine Urobilinogen Ur Leukocyte Esterase Urine WBC (Auto) Urine RBC (Auto) Ur Squamous Epith Cells Hyaline Casts Urine Opiates Screen Urine Methadone Screen Ur Barbiturates Screen Ur Phencyclidine Scrn Ur Amphetamines Screen U Benzodiazepines Scrn U Oth Cocaine Metabols U Cannabinoids Screen Attending/Attestation - Attestation I have personally seen and examined this patient.: Yes I have fully participated in the care of the patient.: Yes I have reviewed all pertinent clinical information: Yes Notes (Text): 01/16/19 18:48 Patient was seen and examined in the ER Bed #1 right before being taken up to the ICU Bed 7. Care of this patient was discussed with resident Dr. Lewis and orders for initiation of fluids, potassium in the fluids, insulin drip, and labs were discussed in detail. Miguelito Hoskins D.O.
[2019-01-16] MEDS: Potassium Ch 20mEq in D5-1/2NS 1,000 ML IV SCH ×2 (17:36→22:25)
[2019-01-16 17:37] LABS: BLOOD UREA NITROGEN 9 mg/dL (9-20); CALCIUM 8.8 mg/dl (8.6-10.4); GFR NON-AFRICAN AMERICAN > 60
[2019-01-16 18:33] LABS: BLOOD UREA NITROGEN 10 mg/dL (9-20); CALCIUM 8.4 mg/dl (8.6-10.4); GFR NON-AFRICAN AMERICAN > 60
[2019-01-16 21:54] LABS: ALB/GLOB RATIO 1.3 (1.0-2.1); ALBUMIN 3.5 g/dL (3.5-5.0); ALT/SGPT 47 U/L (21-72); AST/SGOT 56 U/L (17-59); BLOOD UREA NITROGEN 10 mg/dL (9-20); CALCIUM 8.4 mg/dl (8.6-10.4); GFR NON-AFRICAN AMERICAN > 60
[2019-01-17] MEDS: Insulin Human Regular 100 UNIT in Sodium Chloride 0.9% 99 ML IV SCH (00:24)
[2019-01-17 01:21] LABS: BLOOD UREA NITROGEN 11 mg/dL (9-20); CALCIUM 8.5 mg/dl (8.6-10.4); GFR NON-AFRICAN AMERICAN > 60
[2019-01-17] MEDS ORDERED: Potassium Chloride 20 mEq/15 ml LIQ UD PO ONE (01:30)
[2019-01-17] MEDS: Potassium Ch 20mEq in D5-1/2NS 1,000 ML IV SCH ×2 (06:09→08:09)
[2019-01-17 06:21] LABS: BASO % 0.2 % (0.0-2.0); EOS # 0.2 K/uL (0.0-0.7); EOS % 2.7 % (0.0-4.0); LYMPH # 2.1 K/uL (1.0-4.3); LYMPH % 34.4 % (20.0-40.0); MEAN CELL VOLUME 90.7 fL (80.0-94.0); MEAN CORPUSCULAR HEMOGLOBIN 31.6 pg (27.0-31.0); MEAN CORPUSCULAR HGB CONC 34.9 g/dL (33.0-37.0); MEAN PLATELET VOLUME 11.3 fL (7.2-11.7); MONO # 0.4 K/uL (0.0-0.8); MONO % 6.4 % (0.0-10.0); NEUT # 3.5 K/uL (1.8-7.0); NEUT % 56.3 % (50.0-75.0); NRBC % 0.1 % (0.0-2.0); RBC 4.42 Mil/uL (4.40-5.90); RED CELL DISTRIBUTION WIDTH 12.7 % (11.5-14.5); WHITE BLOOD COUNT 6.1 K/uL (4.8-10.8)
[2019-01-17 06:30] LABS: HDL CHOLESTEROL 44 mg/dL (30-70)
[2019-01-17 06:41] LABS: LDL CHOLESTEROL 114 mg/dL (0-129)
[2019-01-17 06:43] LABS: ALB/GLOB RATIO 1.5 (1.0-2.1); ALBUMIN 3.5 g/dL (3.5-5.0); ALT/SGPT 43 U/L (21-72); AST/SGOT 45 U/L (17-59); BLOOD UREA NITROGEN 11 mg/dL (9-20); CALCIUM 8.3 mg/dl (8.6-10.4); GFR NON-AFRICAN AMERICAN > 60
[2019-01-17] MEDS: Sodium Chloride 0.45% 1,000 ML IV SCH ×2 (08:43→21:01)
[2019-01-17] MEDS ORDERED: (Lantus) Insulin Glargine, Recombinant SC ONE (08:45)
[2019-01-17] MEDS: Enoxaparin 40 mg Syringe SC SCH (09:57)
[2019-01-17] MEDS ORDERED: (Novolog) Insulin Aspart, Recombinant 100 u/ml 10 ml vial SC SCH ×2 (11:30→16:30)
--- NOTE | 2019-01-17 11:34 | CP.CCUPN ---
<SoledadRosette - Last Filed: 01/17/19 11:31> CCU Subjective - Physician Review Subjective (Free Text): 01/17/19 11:31 Rosette Rowe PGY1 Progress Note for Dr. Merlin Hoskins Patient was examined at bedside this morning. No complaints today. No acute events overnight. CCU Objective - Vital Signs / Intake & Output Vital Signs (Last 4 hours): Vital Signs Temp Pulse Resp BP Pulse Ox 01/17/19 10:00 77 11 L 119/89 98 01/17/19 09:00 67 10 L 112/83 99 01/17/19 08:00 98.1 F 63 9 L 105/72 100 Intake and Output (Last 8hrs): Intake & Output 01/16/19 01/17/19 01/17/19 22:59 06:59 14:59 Intake Total 1223 1624 1017.00 Output Total 200 300 0 Balance 1023 1324 1017.00 Intake: IV 9 84.00 Intake, IV Amount 1214 1624 613 Left Forearm 1200 1600 600 Right Forearm 14 24 13 Oral 0 320 Output: Urine 200 300 0 Urine, Voided 200 300 0 Stool 0 Other: Voiding Method Urinal # Voids Urine, Voided 1 - Physical Exam Head: Positive for: Atraumatic, Normocephalic Pupils: Positive for: PERRL Extroacular Muscles: Positive for: EOMI Conjunctiva: Positive for: Normal Mouth: Positive for: Moist Mucous Membranes Neck: Positive for: Normal Range of Motion Respiratory/Chest: Positive for: Clear to Auscultation, Good Air Exchange. Negative for: Respiratory Distress, Accessory Muscle Use Cardiovascular: Positive for: Regular Rate and Rhythm, Normal S1, S2. Negative for: Murmurs Abdomen: Positive for: Normal Bowel Sounds. Negative for: Tenderness, Distention, Peritoneal Signs Upper Extremity: Positive for: Normal Inspection. Negative for: Cyanosis, Edema Lower Extremity: Positive for: Normal Inspection. Negative for: Edema Neurological: Positive for: GCS=15, CN II-XII Intact, Speech Normal Skin: Positive for: Warm, Normal Color. Negative for: Dry, Rashes Psychiatric: Positive for: Alert, Oriented x 3, Normal Insight, Normal Concentration - Medications Active Medications: Active Medications Generic Name Dose Route Start Last Admin Trade Name Freq PRN Reason Stop Dose Admin Aspirin 81 mg 01/17/19 10:00 01/17/19 09:57 Ecotrin PO 81 mg DAILY KATE Administration Dextrose 0 ml 01/16/19 11:49 Dextrose 50% Inj IV STAT PRN Hypoglycemia Protocol Protocol Dextrose 0 gm 01/16/19 11:49 Glutose 15 PO ONCE PRN Hypoglycemia Protocol Protocol Enoxaparin Sodium 40 mg 01/17/19 10:00 01/17/19 09:57 Lovenox SC 40 mg DAILY KATE Administration Famotidine 20 mg 01/17/19 10:00 01/17/19 09:57 Pepcid PO 20 mg DAILY KATE Administration Glucagon 0 mg 01/16/19 11:49 Glucagen Diagnostic Kit IM STAT PRN Hypoglycemia Protocol Protocol Dextrose 1,000 mls @ 0 mls/hr 01/16/19 11:49 Dextrose 5% In Water 1000 Ml IV .Q0M PRN Hypoglycemia Protocol Protocol Per Protocol Sodium Chloride 1,000 mls @ 100 mls/hr 01/17/19 08:45 01/17/19 08:43 Sodium Chloride 0.45% IV 100 mls/hr .Q10H KATE Administration Insulin Aspart 5 unit 01/17/19 11:30 Novolog SC AC KATE Rosuvastatin Calcium 10 mg 01/17/19 22:00 Crestor PO HS KATE - Patient Studies Lab Studies: Lab Studies 01/17/19 01/17/19 01/17/19 Range/Units 06:06 06:06 06:06 WBC (4.8-10.8) K/uL RBC (4.40-5.90) Mil/uL Hgb (12.0-18.0) g/dL Hct (35.0-51.0) % MCV (80.0-94.0) fL MCH (27.0-31.0) pg MCHC (33.0-37.0) g/dL RDW (11.5-14.5) % Plt Count (130-400) K/uL MPV (7.2-11.7) fL Neut % (Auto) (50.0-75.0) % Lymph % (Auto) (20.0-40.0) % [place] % (Auto) (0.0-10.0) % Eos % (Auto) (0.0-4.0) % Baso % (Auto) (0.0-2.0) % Neut # (Auto) (1.8-7.0) K/uL Lymph # (Auto) (1.0-4.3) K/uL [place] # (Auto) (0.0-0.8) K/uL Eos # (Auto) (0.0-0.7) K/uL Baso # (Auto) (0.0-0.2) K/uL Sodium 137 (132-148) mmol/L Potassium 3.7 (3.6-5.2) mmol/L Chloride 109 H (98-107) mmol/L Carbon Dioxide 21 L (22-30) mmol/L Anion Gap 12 (10-20) BUN 11 (9-20) mg/dL Creatinine 0.3 L (0.8-1.5) mg/dL Est GFR ( Amer) > 60 Est GFR (Non-Af Amer) > 60 POC Glucose (mg/dL) (65-110) mg/dL Random Glucose 212 H (75-110) mg/dL Hemoglobin A1c (4.2-6.5) % Serum Osmolality (272-300) mosm/kg Calcium 8.3 L (8.6-10.4) mg/dl Phosphorus 2.2 L (2.5-4.5) mg/dL Magnesium 2.0 (1.6-2.3) mg/dL Total Bilirubin 0.7 (0.2-1.3) mg/dL AST 45 (17-59) U/L ALT 43 (21-72) U/L Alkaline Phosphatase 78 (38-126) U/L Troponin I (0.00-0.120) ng/mL NT-Pro-B Natriuret Pep (0-450) pg/mL Total Protein 5.9 L (6.3-8.3) g/dL Albumin 3.5 (3.5-5.0) g/dL Globulin 2.3 (2.2-3.9) gm/dL Albumin/Globulin Ratio 1.5 (1.0-2.1) Triglycerides 109 (0-149) mg/dL Cholesterol 161 (0-199) mg/dL LDL Cholesterol Direct 114 (0-129) mg/dL HDL Cholesterol 44 (30-70) mg/dL Free T4 0.99 (0.78-2.19) ng/dL TSH 3rd Generation (0.46-4.68) mIU/L Urine Opiates Screen (NEGATIVE) Urine Methadone Screen (NEGATIVE) Ur Barbiturates Screen (NEGATIVE) Ur Phencyclidine Scrn (NEGATIVE) Ur Amphetamines Screen (NEGATIVE) U Benzodiazepines Scrn (NEGATIVE) U Oth Cocaine Metabols (NEGATIVE) U Cannabinoids Screen (NEGATIVE) 01/17/19 01/17/19 01/17/19 Range/Units 06:06 05:01 03:12 WBC 6.1 (4.8-10.8) K/uL RBC 4.42 (4.40-5.90) Mil/uL Hgb 14.0 D (12.0-18.0) g/dL Hct 40.1 (35.0-51.0) % MCV 90.7 (80.0-94.0) fL MCH 31.6 H (27.0-31.0) pg MCHC 34.9 (33.0-37.0) g/dL RDW 12.7 (11.5-14.5) % Plt Count 124 L D (130-400) K/uL MPV 11.3 (7.2-11.7) fL Neut % (Auto) 56.3 (50.0-75.0) % Lymph % (Auto) 34.4 (20.0-40.0) % [place] % (Auto) 6.4 (0.0-10.0) % Eos % (Auto) 2.7 (0.0-4.0) % Baso % (Auto) 0.2 (0.0-2.0) % Neut # (Auto) 3.5 (1.8-7.0) K/uL Lymph # (Auto) 2.1 (1.0-4.3) K/uL [place] # (Auto) 0.4 (0.0-0.8) K/uL Eos # (Auto) 0.2 (0.0-0.7) K/uL Baso # (Auto) 0.0 (0.0-0.2) K/uL Sodium (132-148) mmol/L Potassium (3.6-5.2) mmol/L Chloride (98-107) mmol/L Carbon Dioxide (22-30) mmol/L Anion Gap (10-20) BUN (9-20) mg/dL Creatinine (0.8-1.5) mg/dL Est GFR ( Amer) Est GFR (Non-Af Amer) POC Glucose (mg/dL) 235 H 235 H (65-110) mg/dL Random Glucose (75-110) mg/dL Hemoglobin A1c (4.2-6.5) % Serum Osmolality (272-300) mosm/kg Calcium (8.6-10.4) mg/dl Phosphorus (2.5-4.5) mg/dL Magnesium (1.6-2.3) mg/dL Total Bilirubin (0.2-1.3) mg/dL AST (17-59) U/L ALT (21-72) U/L Alkaline Phosphatase (38-126) U/L Troponin I (0.00-0.120) ng/mL NT-Pro-B Natriuret Pep (0-450) pg/mL Total Protein (6.3-8.3) g/dL Albumin (3.5-5.0) g/dL Globulin (2.2-3.9) gm/dL Albumin/Globulin Ratio (1.0-2.1) Triglycerides (0-149) mg/dL Cholesterol (0-199) mg/dL LDL Cholesterol Direct (0-129) mg/dL HDL Cholesterol (30-70) mg/dL Free T4 (0.78-2.19) ng/dL TSH 3rd Generation (0.46-4.68) mIU/L Urine Opiates Screen (NEGATIVE) Urine Methadone Screen (NEGATIVE) Ur Barbiturates Screen (NEGATIVE) Ur Phencyclidine Scrn (NEGATIVE) Ur Amphetamines Screen (NEGATIVE) U Benzodiazepines Scrn (NEGATIVE) U Oth Cocaine Metabols (NEGATIVE) U Cannabinoids Screen (NEGATIVE) 01/17/19 01/17/19 01/17/19 Range/Units 02:10 01:12 01:00 WBC (4.8-10.8) K/uL RBC (4.40-5.90) Mil/uL Hgb (12.0-18.0) g/dL Hct (35.0-51.0) % MCV (80.0-94.0) fL MCH (27.0-31.0) pg MCHC (33.0-37.0) g/dL RDW (11.5-14.5) % Plt Count (130-400) K/uL MPV (7.2-11.7) fL Neut % (Auto) (50.0-75.0) % Lymph % (Auto) (20.0-40.0) % [place] % (Auto) (0.0-10.0) % Eos % (Auto) (0.0-4.0) % Baso % (Auto) (0.0-2.0) % Neut # (Auto) (1.8-7.0) K/uL Lymph # (Auto) (1.0-4.3) K/uL [place] # (Auto) (0.0-0.8) K/uL Eos # (Auto) (0.0-0.7) K/uL Baso # (Auto) (0.0-0.2) K/uL Sodium 136 (132-148) mmol/L Potassium 3.4 L (3.6-5.2) mmol/L Chloride 107 (98-107) mmol/L Carbon Dioxide 23 (22-30) mmol/L Anion Gap 9 L (10-20) BUN 11 (9-20) mg/dL Creatinine 0.4 L (0.8-1.5) mg/dL Est GFR ( Amer) > 60 Est GFR (Non-Af Amer) > 60 POC Glucose (mg/dL) 243 H 235 H (65-110) mg/dL Random Glucose 228 H (75-110) mg/dL Hemoglobin A1c (4.2-6.5) % Serum Osmolality (272-300) mosm/kg Calcium 8.5 L (8.6-10.4) mg/dl Phosphorus 2.4 L (2.5-4.5) mg/dL Magnesium 2.0 (1.6-2.3) mg/dL Total Bilirubin (0.2-1.3) mg/dL AST (17-59) U/L ALT (21-72) U/L Alkaline Phosphatase (38-126) U/L Troponin I (0.00-0.120) ng/mL NT-Pro-B Natriuret Pep (0-450) pg/mL Total Protein (6.3-8.3) g/dL Albumin (3.5-5.0) g/dL Globulin (2.2-3.9) gm/dL Albumin/Globulin Ratio (1.0-2.1) Triglycerides (0-149) mg/dL Cholesterol (0-199) mg/dL LDL Cholesterol Direct (0-129) mg/dL HDL Cholesterol (30-70) mg/dL Free T4 (0.78-2.19) ng/dL TSH 3rd Generation (0.46-4.68) mIU/L Urine Opiates Screen (NEGATIVE) Urine Methadone Screen (NEGATIVE) Ur Barbiturates Screen (NEGATIVE) Ur Phencyclidine Scrn (NEGATIVE) Ur Amphetamines Screen (NEGATIVE) U Benzodiazepines Scrn (NEGATIVE) U Oth Cocaine Metabols (NEGATIVE) U Cannabinoids Screen (NEGATIVE) 01/16/19 01/16/19 01/16/19 Range/Units 23:39 23:01 22:06 WBC (4.8-10.8) K/uL RBC (4.40-5.90) Mil/uL Hgb (12.0-18.0) g/dL Hct (35.0-51.0) % MCV (80.0-94.0) fL MCH (27.0-31.0) pg MCHC (33.0-37.0) g/dL RDW (11.5-14.5) % Plt Count (130-400) K/uL MPV (7.2-11.7) fL Neut % (Auto) (50.0-75.0) % Lymph % (Auto) (20.0-40.0) % [place] % (Auto) (0.0-10.0) % Eos % (Auto) (0.0-4.0) % Baso % (Auto) (0.0-2.0) % Neut # (Auto) (1.8-7.0) K/uL Lymph # (Auto) (1.0-4.3) K/uL [place] # (Auto) (0.0-0.8) K/uL Eos # (Auto) (0.0-0.7) K/uL Baso # (Auto) (0.0-0.2) K/uL Sodium (132-148) mmol/L Potassium (3.6-5.2) mmol/L Chloride (98-107) mmol/L Carbon Dioxide (22-30) mmol/L Anion Gap (10-20) BUN (9-20) mg/dL Creatinine (0.8-1.5) mg/dL Est GFR ( Amer) Est GFR (Non-Af Amer) POC Glucose (mg/dL) 222 H 217 H 246 H (65-110) mg/dL Random Glucose (75-110) mg/dL Hemoglobin A1c (4.2-6.5) % Serum Osmolality (272-300) mosm/kg Calcium (8.6-10.4) mg/dl Phosphorus (2.5-4.5) mg/dL Magnesium (1.6-2.3) mg/dL Total Bilirubin (0.2-1.3) mg/dL AST (17-59) U/L ALT (21-72) U/L Alkaline Phosphatase (38-126) U/L Troponin I (0.00-0.120) ng/mL NT-Pro-B Natriuret Pep (0-450) pg/mL Total Protein (6.3-8.3) g/dL Albumin (3.5-5.0) g/dL Globulin (2.2-3.9) gm/dL Albumin/Globulin Ratio (1.0-2.1) Triglycerides (0-149) mg/dL Cholesterol (0-199) mg/dL LDL Cholesterol Direct (0-129) mg/dL HDL Cholesterol (30-70) mg/dL Free T4 (0.78-2.19) ng/dL TSH 3rd Generation (0.46-4.68) mIU/L Urine Opiates Screen (NEGATIVE) Urine Methadone Screen (NEGATIVE) Ur Barbiturates Screen (NEGATIVE) Ur Phencyclidine Scrn (NEGATIVE) Ur Amphetamines Screen (NEGATIVE) U Benzodiazepines Scrn (NEGATIVE) U Oth Cocaine Metabols (NEGATIVE) U Cannabinoids Screen (NEGATIVE) 01/16/19 01/16/19 01/16/19 Range/Units 21:23 21:07 20:02 WBC (4.8-10.8) K/uL RBC (4.40-5.90) Mil/uL Hgb (12.0-18.0) g/dL Hct (35.0-51.0) % MCV (80.0-94.0) fL MCH (27.0-31.0) pg MCHC (33.0-37.0) g/dL RDW (11.5-14.5) % Plt Count (130-400) K/uL MPV (7.2-11.7) fL Neut % (Auto) (50.0-75.0) % Lymph % (Auto) (20.0-40.0) % [place] % (Auto) (0.0-10.0) % Eos % (Auto) (0.0-4.0) % Baso % (Auto) (0.0-2.0) % Neut # (Auto) (1.8-7.0) K/uL Lymph # (Auto) (1.0-4.3) K/uL [place] # (Auto) (0.0-0.8) K/uL Eos # (Auto) (0.0-0.7) K/uL Baso # (Auto) (0.0-0.2) K/uL Sodium 136 (132-148) mmol/L Potassium 3.5 L (3.6-5.2) mmol/L Chloride 108 H (98-107) mmol/L Carbon Dioxide 20 L (22-30) mmol/L Anion Gap 11 (10-20) BUN 10 (9-20) mg/dL Creatinine 0.4 L (0.8-1.5) mg/dL Est GFR ( Amer) > 60 Est GFR (Non-Af Amer) > 60 POC Glucose (mg/dL) 212 H 210 H (65-110) mg/dL Random Glucose 236 H D (75-110) mg/dL Hemoglobin A1c (4.2-6.5) % Serum Osmolality (272-300) mosm/kg Calcium 8.4 L (8.6-10.4) mg/dl Phosphorus 2.4 L (2.5-4.5) mg/dL Magnesium 2.0 (1.6-2.3) mg/dL Total Bilirubin 0.8 (0.2-1.3) mg/dL AST 56 (17-59) U/L ALT 47 (21-72) U/L Alkaline Phosphatase 81 (38-126) U/L Troponin I (0.00-0.120) ng/mL NT-Pro-B Natriuret Pep (0-450) pg/mL Total Protein 6.2 L (6.3-8.3) g/dL Albumin 3.5 D (3.5-5.0) g/dL Globulin 2.7 (2.2-3.9) gm/dL Albumin/Globulin Ratio 1.3 (1.0-2.1) Triglycerides (0-149) mg/dL Cholesterol (0-199) mg/dL LDL Cholesterol Direct (0-129) mg/dL HDL Cholesterol (30-70) mg/dL Free T4 (0.78-2.19) ng/dL TSH 3rd Generation (0.46-4.68) mIU/L Urine Opiates Screen (NEGATIVE) Urine Methadone Screen (NEGATIVE) Ur Barbiturates Screen (NEGATIVE) Ur Phencyclidine Scrn (NEGATIVE) Ur Amphetamines Screen (NEGATIVE) U Benzodiazepines Scrn (NEGATIVE) U Oth Cocaine Metabols (NEGATIVE) U Cannabinoids Screen (NEGATIVE) 01/16/19 01/16/19 01/16/19 Range/Units 19:10 18:14 17:14 WBC (4.8-10.8) K/uL RBC (4.40-5.90) Mil/uL Hgb (12.0-18.0) g/dL Hct (35.0-51.0) % MCV (80.0-94.0) fL MCH (27.0-31.0) pg MCHC (33.0-37.0) g/dL RDW (11.5-14.5) % Plt Count (130-400) K/uL MPV (7.2-11.7) fL Neut % (Auto) (50.0-75.0) % Lymph % (Auto) (20.0-40.0) % [place] % (Auto) (0.0-10.0) % Eos % (Auto) (0.0-4.0) % Baso % (Auto) (0.0-2.0) % Neut # (Auto) (1.8-7.0) K/uL Lymph # (Auto) (1.0-4.3) K/uL [place] # (Auto) (0.0-0.8) K/uL Eos # (Auto) (0.0-0.7) K/uL Baso # (Auto) (0.0-0.2) K/uL Sodium 137 138 (132-148) mmol/L Potassium 3.8 3.8 (3.6-5.2) mmol/L Chloride 109 H 110 H (98-107) mmol/L Carbon Dioxide 19 L 19 L (22-30) mmol/L Anion Gap 13 12 (10-20) BUN 10 9 (9-20) mg/dL Creatinine 0.4 L 0.4 L (0.8-1.5) mg/dL Est GFR ( Amer) > 60 > 60 Est GFR (Non-Af Amer) > 60 > 60 POC Glucose (mg/dL) 199 H (65-110) mg/dL Random Glucose 166 H 182 H D (75-110) mg/dL Hemoglobin A1c (4.2-6.5) % Serum Osmolality (272-300) mosm/kg Calcium 8.4 L 8.8 (8.6-10.4) mg/dl Phosphorus 2.4 L 2.4 L (2.5-4.5) mg/dL Magnesium 1.9 2.0 (1.6-2.3) mg/dL Total Bilirubin (0.2-1.3) mg/dL AST (17-59) U/L ALT (21-72) U/L Alkaline Phosphatase (38-126) U/L Troponin I (0.00-0.120) ng/mL NT-Pro-B Natriuret Pep (0-450) pg/mL Total Protein (6.3-8.3) g/dL Albumin (3.5-5.0) g/dL Globulin (2.2-3.9) gm/dL Albumin/Globulin Ratio (1.0-2.1) Triglycerides (0-149) mg/dL Cholesterol (0-199) mg/dL LDL Cholesterol Direct (0-129) mg/dL HDL Cholesterol (30-70) mg/dL Free T4 (0.78-2.19) ng/dL TSH 3rd Generation (0.46-4.68) mIU/L Urine Opiates Screen (NEGATIVE) Urine Methadone Screen (NEGATIVE) Ur Barbiturates Screen (NEGATIVE) Ur Phencyclidine Scrn (NEGATIVE) Ur Amphetamines Screen (NEGATIVE) U Benzodiazepines Scrn (NEGATIVE) U Oth Cocaine Metabols (NEGATIVE) U Cannabinoids Screen (NEGATIVE) 01/16/19 01/16/19 01/16/19 Range/Units 17:03 16:05 15:12 WBC (4.8-10.8) K/uL RBC (4.40-5.90) Mil/uL Hgb (12.0-18.0) g/dL Hct (35.0-51.0) % MCV (80.0-94.0) fL MCH (27.0-31.0) pg MCHC (33.0-37.0) g/dL RDW (11.5-14.5) % Plt Count (130-400) K/uL MPV (7.2-11.7) fL Neut % (Auto) (50.0-75.0) % Lymph % (Auto) (20.0-40.0) % [place] % (Auto) (0.0-10.0) % Eos % (Auto) (0.0-4.0) % Baso % (Auto) (0.0-2.0) % Neut # (Auto) (1.8-7.0) K/uL Lymph # (Auto) (1.0-4.3) K/uL [place] # (Auto) (0.0-0.8) K/uL Eos # (Auto) (0.0-0.7) K/uL Baso # (Auto) (0.0-0.2) K/uL Sodium (132-148) mmol/L Potassium (3.6-5.2) mmol/L Chloride (98-107) mmol/L Carbon Dioxide (22-30) mmol/L Anion Gap (10-20) BUN (9-20) mg/dL Creatinine (0.8-1.5) mg/dL Est GFR ( Amer) Est GFR (Non-Af Amer) POC Glucose (mg/dL) 163 H 225 H 236 H (65-110) mg/dL Random Glucose (75-110) mg/dL Hemoglobin A1c (4.2-6.5) % Serum Osmolality (272-300) mosm/kg Calcium (8.6-10.4) mg/dl Phosphorus (2.5-4.5) mg/dL Magnesium (1.6-2.3) mg/dL Total Bilirubin (0.2-1.3) mg/dL AST (17-59) U/L ALT (21-72) U/L Alkaline Phosphatase (38-126) U/L Troponin I (0.00-0.120) ng/mL NT-Pro-B Natriuret Pep (0-450) pg/mL Total Protein (6.3-8.3) g/dL Albumin (3.5-5.0) g/dL Globulin (2.2-3.9) gm/dL Albumin/Globulin Ratio (1.0-2.1) Triglycerides (0-149) mg/dL Cholesterol (0-199) mg/dL LDL Cholesterol Direct (0-129) mg/dL HDL Cholesterol (30-70) mg/dL Free T4 (0.78-2.19) ng/dL TSH 3rd Generation (0.46-4.68) mIU/L Urine Opiates Screen (NEGATIVE) Urine Methadone Screen (NEGATIVE) Ur Barbiturates Screen (NEGATIVE) Ur Phencyclidine Scrn (NEGATIVE) Ur Amphetamines Screen (NEGATIVE) U Benzodiazepines Scrn (NEGATIVE) U Oth Cocaine Metabols (NEGATIVE) U Cannabinoids Screen (NEGATIVE) 01/16/19 01/16/19 01/16/19 Range/Units 14:26 14:03 14:03 WBC (4.8-10.8) K/uL RBC (4.40-5.90) Mil/uL Hgb (12.0-18.0) g/dL Hct (35.0-51.0) % MCV (80.0-94.0) fL MCH (27.0-31.0) pg MCHC (33.0-37.0) g/dL RDW (11.5-14.5) % Plt Count (130-400) K/uL MPV (7.2-11.7) fL Neut % (Auto) (50.0-75.0) % Lymph % (Auto) (20.0-40.0) % [place] % (Auto) (0.0-10.0) % Eos % (Auto) (0.0-4.0) % Baso % (Auto) (0.0-2.0) % Neut # (Auto) (1.8-7.0) K/uL Lymph # (Auto) (1.0-4.3) K/uL [place] # (Auto) (0.0-0.8) K/uL Eos # (Auto) (0.0-0.7) K/uL Baso # (Auto) (0.0-0.2) K/uL Sodium 140 (132-148) mmol/L Potassium 4.4 (3.6-5.2) mmol/L Chloride 109 H (98-107) mmol/L Carbon Dioxide 15 L (22-30) mmol/L Anion Gap 20 (10-20) BUN 10 (9-20) mg/dL Creatinine 0.4 L (0.8-1.5) mg/dL Est GFR ( Amer) > 60 Est GFR (Non-Af Amer) > 60 POC Glucose (mg/dL) 241 H (65-110) mg/dL Random Glucose 250 H D (75-110) mg/dL Hemoglobin A1c (4.2-6.5) % Serum Osmolality 309 H (272-300) mosm/kg Calcium 8.5 L (8.6-10.4) mg/dl Phosphorus 3.1 (2.5-4.5) mg/dL Magnesium 2.0 (1.6-2.3) mg/dL Total Bilirubin (0.2-1.3) mg/dL AST (17-59) U/L ALT (21-72) U/L Alkaline Phosphatase (38-126) U/L Troponin I (0.00-0.120) ng/mL NT-Pro-B Natriuret Pep (0-450) pg/mL Total Protein (6.3-8.3) g/dL Albumin (3.5-5.0) g/dL Globulin (2.2-3.9) gm/dL Albumin/Globulin Ratio (1.0-2.1) Triglycerides (0-149) mg/dL Cholesterol (0-199) mg/dL LDL Cholesterol Direct (0-129) mg/dL HDL Cholesterol (30-70) mg/dL Free T4 (0.78-2.19) ng/dL TSH 3rd Generation (0.46-4.68) mIU/L Urine Opiates Screen (NEGATIVE) Urine Methadone Screen (NEGATIVE) Ur Barbiturates Screen (NEGATIVE) Ur Phencyclidine Scrn (NEGATIVE) Ur Amphetamines Screen (NEGATIVE) U Benzodiazepines Scrn (NEGATIVE) U Oth Cocaine Metabols (NEGATIVE) U Cannabinoids Screen (NEGATIVE) 01/16/19 01/16/19 01/16/19 Range/Units 13:37 13:04 11:53 WBC (4.8-10.8) K/uL RBC (4.40-5.90) Mil/uL Hgb (12.0-18.0) g/dL Hct (35.0-51.0) % MCV (80.0-94.0) fL MCH (27.0-31.0) pg MCHC (33.0-37.0) g/dL RDW (11.5-14.5) % Plt Count (130-400) K/uL MPV (7.2-11.7) fL Neut % (Auto) (50.0-75.0) % Lymph % (Auto) (20.0-40.0) % [place] % (Auto) (0.0-10.0) % Eos % (Auto) (0.0-4.0) % Baso % (Auto) (0.0-2.0) % Neut # (Auto) (1.8-7.0) K/uL Lymph # (Auto) (1.0-4.3) K/uL [place] # (Auto) (0.0-0.8) K/uL Eos # (Auto) (0.0-0.7) K/uL Baso # (Auto) (0.0-0.2) K/uL Sodium (132-148) mmol/L Potassium (3.6-5.2) mmol/L Chloride (98-107) mmol/L Carbon Dioxide (22-30) mmol/L Anion Gap (10-20) BUN (9-20) mg/dL Creatinine (0.8-1.5) mg/dL Est GFR ( Amer) Est GFR (Non-Af Amer) POC Glucose (mg/dL) 262 H 284 H (65-110) mg/dL Random Glucose (75-110) mg/dL Hemoglobin A1c (4.2-6.5) % Serum Osmolality (272-300) mosm/kg Calcium (8.6-10.4) mg/dl Phosphorus (2.5-4.5) mg/dL Magnesium (1.6-2.3) mg/dL Total Bilirubin (0.2-1.3) mg/dL AST (17-59) U/L ALT (21-72) U/L Alkaline Phosphatase (38-126) U/L Troponin I (0.00-0.120) ng/mL NT-Pro-B Natriuret Pep (0-450) pg/mL Total Protein (6.3-8.3) g/dL Albumin (3.5-5.0) g/dL Globulin (2.2-3.9) gm/dL Albumin/Globulin Ratio (1.0-2.1) Triglycerides (0-149) mg/dL Cholesterol (0-199) mg/dL LDL Cholesterol Direct (0-129) mg/dL HDL Cholesterol (30-70) mg/dL Free T4 (0.78-2.19) ng/dL TSH 3rd Generation (0.46-4.68) mIU/L Urine Opiates Screen Negative (NEGATIVE) Urine Methadone Screen Negative (NEGATIVE) Ur Barbiturates Screen Negative (NEGATIVE) Ur Phencyclidine Scrn Negative (NEGATIVE) Ur Amphetamines Screen Negative (NEGATIVE) U Benzodiazepines Scrn Negative (NEGATIVE) U Oth Cocaine Metabols Negative (NEGATIVE) U Cannabinoids Screen Negative (NEGATIVE) 01/16/19 01/16/19 01/16/19 Range/Units 11:49 11:41 10:36 WBC (4.8-10.8) K/uL RBC (4.40-5.90) Mil/uL Hgb (12.0-18.0) g/dL Hct (35.0-51.0) % MCV (80.0-94.0) fL MCH (27.0-31.0) pg MCHC (33.0-37.0) g/dL RDW (11.5-14.5) % Plt Count (130-400) K/uL MPV (7.2-11.7) fL Neut % (Auto) (50.0-75.0) % Lymph % (Auto) (20.0-40.0) % [place] % (Auto) (0.0-10.0) % Eos % (Auto) (0.0-4.0) % Baso % (Auto) (0.0-2.0) % Neut # (Auto) (1.8-7.0) K/uL Lymph # (Auto) (1.0-4.3) K/uL [place] # (Auto) (0.0-0.8) K/uL Eos # (Auto) (0.0-0.7) K/uL Baso # (Auto) (0.0-0.2) K/uL Sodium 137 (132-148) mmol/L Potassium 4.2 (3.6-5.2) mmol/L Chloride 98 (98-107) mmol/L Carbon Dioxide 17 L (22-30) mmol/L Anion Gap 26 H (10-20) BUN 11 (9-20) mg/dL Creatinine 0.6 L (0.8-1.5) mg/dL Est GFR ( Amer) > 60 Est GFR (Non-Af Amer) > 60 POC Glucose (mg/dL) 362 H (65-110) mg/dL Random Glucose 442 H* (75-110) mg/dL Hemoglobin A1c 11.3 H (4.2-6.5) % Serum Osmolality (272-300) mosm/kg Calcium 10.1 (8.6-10.4) mg/dl Phosphorus 5.1 H (2.5-4.5) mg/dL Magnesium 2.1 (1.6-2.3) mg/dL Total Bilirubin 1.3 (0.2-1.3) mg/dL AST 51 (17-59) U/L ALT 61 (21-72) U/L Alkaline Phosphatase 134 H (38-126) U/L Troponin I < 0.0120 (0.00-0.120) ng/mL NT-Pro-B Natriuret Pep 36.0 (0-450) pg/mL Total Protein 8.5 H (6.3-8.3) g/dL Albumin 5.0 (3.5-5.0) g/dL Globulin 3.5 (2.2-3.9) gm/dL Albumin/Globulin Ratio 1.4 (1.0-2.1) Triglycerides (0-149) mg/dL Cholesterol (0-199) mg/dL LDL Cholesterol Direct (0-129) mg/dL HDL Cholesterol (30-70) mg/dL Free T4 (0.78-2.19) ng/dL TSH 3rd Generation 0.40 L (0.46-4.68) mIU/L Urine Opiates Screen (NEGATIVE) Urine Methadone Screen (NEGATIVE) Ur Barbiturates Screen (NEGATIVE) Ur Phencyclidine Scrn (NEGATIVE) Ur Amphetamines Screen (NEGATIVE) U Benzodiazepines Scrn (NEGATIVE) U Oth Cocaine Metabols (NEGATIVE) U Cannabinoids Screen (NEGATIVE) Laboratory Results - last 24 hr 01/16/19 01/16/19 01/16/19 10:36 11:41 11:49 WBC RBC Hgb Hct MCV MCH MCHC RDW Plt Count MPV Neut % (Auto) Lymph % (Auto) [place] % (Auto) Eos % (Auto) Baso % (Auto) Neut # (Auto) Lymph # (Auto) [place] # (Auto) Eos # (Auto) Baso # (Auto) Sodium 137 Potassium 4.2 Chloride 98 Carbon Dioxide 17 L Anion Gap 26 H BUN 11 Creatinine 0.6 L Est GFR ( Amer) > 60 Est GFR (Non-Af Amer) > 60 POC Glucose (mg/dL) 362 H Random Glucose 442 H* Hemoglobin A1c 11.3 H Serum Osmolality Calcium 10.1 Phosphorus 5.1 H Magnesium 2.1 Total Bilirubin 1.3 AST 51 ALT 61 Alkaline Phosphatase 134 H Troponin I < 0.0120 NT-Pro-B Natriuret Pep 36.0 Total Protein 8.5 H Albumin 5.0 Globulin 3.5 Albumin/Globulin Ratio 1.4 Triglycerides Cholesterol LDL Cholesterol Direct HDL Cholesterol Free T4 TSH 3rd Generation 0.40 L Urine Opiates Screen Urine Methadone Screen Ur Barbiturates Screen Ur Phencyclidine Scrn Ur Amphetamines Screen U Benzodiazepines Scrn U Oth Cocaine Metabols U Cannabinoids Screen 01/16/19 01/16/19 01/16/19 11:53 13:04 13:37 WBC RBC Hgb Hct MCV MCH MCHC RDW Plt Count MPV Neut % (Auto) Lymph % (Auto) [place] % (Auto) Eos % (Auto) Baso % (Auto) Neut # (Auto) Lymph # (Auto) [place] # (Auto) Eos # (Auto) Baso # (Auto) Sodium Potassium Chloride Carbon Dioxide Anion Gap BUN Creatinine Est GFR ( Amer) Est GFR (Non-Af Amer) POC Glucose (mg/dL) 284 H 262 H Random Glucose Hemoglobin A1c Serum Osmolality Calcium Phosphorus Magnesium Total Bilirubin AST ALT Alkaline Phosphatase Troponin I NT-Pro-B Natriuret Pep Total Protein Albumin Globulin Albumin/Globulin Ratio Triglycerides Cholesterol LDL Cholesterol Direct HDL Cholesterol Free T4 TSH 3rd Generation Urine Opiates Screen Negative Urine Methadone Screen Negative Ur Barbiturates Screen Negative Ur Phencyclidine Scrn Negative Ur Amphetamines Screen Negative U Benzodiazepines Scrn Negative U Oth Cocaine Metabols Negative U Cannabinoids Screen Negative 01/16/19 01/16/19 01/16/19 14:03 14:03 14:26 WBC RBC Hgb Hct MCV MCH MCHC RDW Plt Count MPV Neut % (Auto) Lymph % (Auto) [place] % (Auto) Eos % (Auto) Baso % (Auto) Neut # (Auto) Lymph # (Auto) [place] # (Auto) Eos # (Auto) Baso # (Auto) Sodium 140 Potassium 4.4 Chloride 109 H Carbon Dioxide 15 L Anion Gap 20 BUN 10 Creatinine 0.4 L Est GFR ( Amer) > 60 Est GFR (Non-Af Amer) > 60 POC Glucose (mg/dL) 241 H Random Glucose 250 H D Hemoglobin A1c Serum Osmolality 309 H Calcium 8.5 L Phosphorus 3.1 Magnesium 2.0 Total Bilirubin AST ALT Alkaline Phosphatase Troponin I NT-Pro-B Natriuret Pep Total Protein Albumin Globulin Albumin/Globulin Ratio Triglycerides Cholesterol LDL Cholesterol Direct HDL Cholesterol Free T4 TSH 3rd Generation Urine Opiates Screen Urine Methadone Screen Ur Barbiturates Screen Ur Phencyclidine Scrn Ur Amphetamines Screen U Benzodiazepines Scrn U Oth Cocaine Metabols U Cannabinoids Screen 01/16/19 01/16/19 01/16/19 15:12 16:05 17:03 WBC RBC Hgb Hct MCV MCH MCHC RDW Plt Count MPV Neut % (Auto) Lymph % (Auto) [place] % (Auto) Eos % (Auto) Baso % (Auto) Neut # (Auto) Lymph # (Auto) [place] # (Auto) Eos # (Auto) Baso # (Auto) Sodium Potassium Chloride Carbon Dioxide Anion Gap BUN Creatinine Est GFR ( Amer) Est GFR (Non-Af Amer) POC Glucose (mg/dL) 236 H 225 H 163 H Random Glucose Hemoglobin A1c Serum Osmolality Calcium Phosphorus Magnesium Total Bilirubin AST ALT Alkaline Phosphatase Troponin I NT-Pro-B Natriuret Pep Total Protein Albumin Globulin Albumin/Globulin Ratio Triglycerides Cholesterol LDL Cholesterol Direct HDL Cholesterol Free T4 TSH 3rd Generation Urine Opiates Screen Urine Methadone Screen Ur Barbiturates Screen Ur Phencyclidine Scrn Ur Amphetamines Screen U Benzodiazepines Scrn U Oth Cocaine Metabols U Cannabinoids Screen 01/16/19 01/16/19 01/16/19 17:14 18:14 19:10 WBC RBC Hgb Hct MCV MCH MCHC RDW Plt Count MPV Neut % (Auto) Lymph % (Auto) [place] % (Auto) Eos % (Auto) Baso % (Auto) Neut # (Auto) Lymph # (Auto) [place] # (Auto) Eos # (Auto) Baso # (Auto) Sodium 138 137 Potassium 3.8 3.8 Chloride 110 H 109 H Carbon Dioxide 19 L 19 L Anion Gap 12 13 BUN 9 10 Creatinine 0.4 L 0.4 L Est GFR ( Amer) > 60 > 60 Est GFR (Non-Af Amer) > 60 > 60 POC Glucose (mg/dL) 199 H Random Glucose 182 H D 166 H Hemoglobin A1c Serum Osmolality Calcium 8.8 8.4 L Phosphorus 2.4 L 2.4 L Magnesium 2.0 1.9 Total Bilirubin AST ALT Alkaline Phosphatase Troponin I NT-Pro-B Natriuret Pep Total Protein Albumin Globulin Albumin/Globulin Ratio Triglycerides Cholesterol LDL Cholesterol Direct HDL Cholesterol Free T4 TSH 3rd Generation Urine Opiates Screen Urine Methadone Screen Ur Barbiturates Screen Ur Phencyclidine Scrn Ur Amphetamines Screen U Benzodiazepines Scrn U Oth Cocaine Metabols U Cannabinoids Screen 01/16/19 01/16/19 01/16/19 20:02 21:07 21:23 WBC RBC Hgb Hct MCV MCH MCHC RDW Plt Count MPV Neut % (Auto) Lymph % (Auto) [place] % (Auto) Eos % (Auto) Baso % (Auto) Neut # (Auto) Lymph # (Auto) [place] # (Auto) Eos # (Auto) Baso # (Auto) Sodium 136 Potassium 3.5 L Chloride 108 H Carbon Dioxide 20 L Anion Gap 11 BUN 10 Creatinine 0.4 L Est GFR ( Amer) > 60 Est GFR (Non-Af Amer) > 60 POC Glucose (mg/dL) 210 H 212 H Random Glucose 236 H D Hemoglobin A1c Serum Osmolality Calcium 8.4 L Phosphorus 2.4 L Magnesium 2.0 Total Bilirubin 0.8 AST 56 ALT 47 Alkaline Phosphatase 81 Troponin I NT-Pro-B Natriuret Pep Total Protein 6.2 L Albumin 3.5 D Globulin 2.7 Albumin/Globulin Ratio 1.3 Triglycerides Cholesterol LDL Cholesterol Direct HDL Cholesterol Free T4 TSH 3rd Generation Urine Opiates Screen Urine Methadone Screen Ur Barbiturates Screen Ur Phencyclidine Scrn Ur Amphetamines Screen U Benzodiazepines Scrn U Oth Cocaine Metabols U Cannabinoids Screen 01/16/19 01/16/19 01/16/19 22:06 23:01 23:39 WBC RBC Hgb Hct MCV MCH MCHC RDW Plt Count MPV Neut % (Auto) Lymph % (Auto) [place] % (Auto) Eos % (Auto) Baso % (Auto) Neut # (Auto) Lymph # (Auto) [place] # (Auto) Eos # (Auto) Baso # (Auto) Sodium Potassium Chloride Carbon Dioxide Anion Gap BUN Creatinine Est GFR ( Amer) Est GFR (Non-Af Amer) POC Glucose (mg/dL) 246 H 217 H 222 H Random Glucose Hemoglobin A1c Serum Osmolality Calcium Phosphorus Magnesium Total Bilirubin AST ALT Alkaline Phosphatase Troponin I NT-Pro-B Natriuret Pep Total Protein Albumin Globulin Albumin/Globulin Ratio Triglycerides Cholesterol LDL Cholesterol Direct HDL Cholesterol Free T4 TSH 3rd Generation Urine Opiates Screen Urine Methadone Screen Ur Barbiturates Screen Ur Phencyclidine Scrn Ur Amphetamines Screen U Benzodiazepines Scrn U Oth Cocaine Metabols U Cannabinoids Screen 01/17/19 01/17/19 01/17/19 01:00 01:12 02:10 WBC RBC Hgb Hct MCV MCH MCHC RDW Plt Count MPV Neut % (Auto) Lymph % (Auto) [place] % (Auto) Eos % (Auto) Baso % (Auto) Neut # (Auto) Lymph # (Auto) [place] # (Auto) Eos # (Auto) Baso # (Auto) Sodium 136 Potassium 3.4 L Chloride 107 Carbon Dioxide 23 Anion Gap 9 L BUN 11 Creatinine 0.4 L Est GFR ( Amer) > 60 Est GFR (Non-Af Amer) > 60 POC Glucose (mg/dL) 235 H 243 H Random Glucose 228 H Hemoglobin A1c Serum Osmolality Calcium 8.5 L Phosphorus 2.4 L Magnesium 2.0 Total Bilirubin AST ALT Alkaline Phosphatase Troponin I NT-Pro-B Natriuret Pep Total Protein Albumin Globulin Albumin/Globulin Ratio Triglycerides Cholesterol LDL Cholesterol Direct HDL Cholesterol Free T4 TSH 3rd Generation Urine Opiates Screen Urine Methadone Screen Ur Barbiturates Screen Ur Phencyclidine Scrn Ur Amphetamines Screen U Benzodiazepines Scrn U Oth Cocaine Metabols U Cannabinoids Screen 01/17/19 01/17/19 01/17/19 03:12 05:01 06:06 WBC 6.1 RBC 4.42 Hgb 14.0 D Hct 40.1 MCV 90.7 MCH 31.6 H MCHC 34.9 RDW 12.7 Plt Count 124 L D MPV 11.3 Neut % (Auto) 56.3 Lymph % (Auto) 34.4 [place] % (Auto) 6.4 Eos % (Auto) 2.7 Baso % (Auto) 0.2 Neut # (Auto) 3.5 Lymph # (Auto) 2.1 [place] # (Auto) 0.4 Eos # (Auto) 0.2 Baso # (Auto) 0.0 Sodium Potassium Chloride Carbon Dioxide Anion Gap BUN Creatinine Est GFR ( Amer) Est GFR (Non-Af Amer) POC Glucose (mg/dL) 235 H 235 H Random Glucose Hemoglobin A1c Serum Osmolality Calcium Phosphorus Magnesium Total Bilirubin AST ALT Alkaline Phosphatase Troponin I NT-Pro-B Natriuret Pep Total Protein Albumin Globulin Albumin/Globulin Ratio Triglycerides Cholesterol LDL Cholesterol Direct HDL Cholesterol Free T4 TSH 3rd Generation Urine Opiates Screen Urine Methadone Screen Ur Barbiturates Screen Ur Phencyclidine Scrn Ur Amphetamines Screen U Benzodiazepines Scrn U Oth Cocaine Metabols U Cannabinoids Screen 01/17/19 01/17/19 01/17/19 06:06 06:06 06:06 WBC RBC Hgb Hct MCV MCH MCHC RDW Plt Count MPV Neut % (Auto) Lymph % (Auto) [place] % (Auto) Eos % (Auto) Baso % (Auto) Neut # (Auto) Lymph # (Auto) [place] # (Auto) Eos # (Auto) Baso # (Auto) Sodium 137 Potassium 3.7 Chloride 109 H Carbon Dioxide 21 L Anion Gap 12 BUN 11 Creatinine 0.3 L Est GFR ( Amer) > 60 Est GFR (Non-Af Amer) > 60 POC Glucose (mg/dL) Random Glucose 212 H Hemoglobin A1c Serum Osmolality Calcium 8.3 L Phosphorus 2.2 L Magnesium 2.0 Total Bilirubin 0.7 AST 45 ALT 43 Alkaline Phosphatase 78 Troponin I NT-Pro-B Natriuret Pep Total Protein 5.9 L Albumin 3.5 Globulin 2.3 Albumin/Globulin Ratio 1.5 Triglycerides 109 Cholesterol 161 LDL Cholesterol Direct 114 HDL Cholesterol 44 Free T4 0.99 TSH 3rd Generation Urine Opiates Screen Urine Methadone Screen Ur Barbiturates Screen Ur Phencyclidine Scrn Ur Amphetamines Screen U Benzodiazepines Scrn U Oth Cocaine Metabols U Cannabinoids Screen Radiology Impressions: Radiology Impressions Chest X-Ray 01/16/19 10:19 Impression: No focal infiltrate or effusion. Fingerstick Blood Sugar Results: 225 Review of Systems - Review of Systems Review of Systems: 12 point ROS performed and negative Critical Care Progress Note - Nutrition Nutrition: Nutrition Category Date Time Status Consistent Carbohydrate [DIET] Diets 01/17/19 Breakfast Active Assessment/Plan - Assessment and Plan (Free Text) Assessment: Patient is a 43yo M with no reported PMH presenting to the ED for dry mouth. Admitted for DKA. Anion gap closed at this time. Uncontrolled DM, HbA1c 11.3. parent educator and fountain server consulted. Patient hemodynamically stable for downgrade at this time. <[id number] M - Last Filed: 01/17/19 20:09> CCU Objective - Vital Signs / Intake & Output Intake and Output (Last 8hrs): Intake & Output 01/17/19 01/17/19 01/17/19 06:59 14:59 22:59 Intake Total 1624 1797.00 200 Output Total 300 580 300 Balance 1324 1217.00 -100 Intake: IV 84.00 Intake, IV Amount 1624 1013 200 Left Forearm 1600 1000 200 Right Forearm 24 13 Oral 700 Output: Urine 300 580 300 Urine, Voided 300 580 300 Stool 0 Other: # Voids Urine, Voided 1 - Medications Active Medications: Active Medications Generic Name Dose Route Start Last Admin Trade Name Joseq PRN Reason Stop Dose Admin Aspirin 81 mg 01/17/19 10:00 01/17/19 09:57 Ecotrin PO 81 mg DAILY KATE Administration Dextrose 0 ml 01/16/19 11:49 Dextrose 50% Inj IV STAT PRN Hypoglycemia Protocol Protocol Dextrose 0 gm 01/16/19 11:49 Glutose 15 PO ONCE PRN Hypoglycemia Protocol Protocol Enoxaparin Sodium 40 mg 01/17/19 10:00 01/17/19 09:57 Lovenox SC 40 mg DAILY KATE Administration Famotidine 20 mg 01/17/19 10:00 01/17/19 09:57 Pepcid PO 20 mg DAILY KATE Administration Glipizide 10 mg 01/17/19 16:30 01/17/19 16:43 Glucotrol PO 10 mg ACBD KATE Administration Glucagon 0 mg 01/16/19 11:49 Glucagen Diagnostic Kit IM STAT PRN Hypoglycemia Protocol Protocol Dextrose 1,000 mls @ 0 mls/hr 01/16/19 11:49 Dextrose 5% In Water 1000 Ml IV .Q0M PRN Hypoglycemia Protocol Protocol Per Protocol Sodium Chloride 1,000 mls @ 100 mls/hr 01/17/19 08:45 01/17/19 08:43 Sodium Chloride 0.45% IV 100 mls/hr .Q10H KATE Administration Insulin Human NPH 14 unit 01/17/19 22:00 Novolin N SC HS KATE Insulin Human Regular 0 unit 01/17/19 16:30 01/17/19 16:50 Novolin R SC Not Given ACHS KATE Protocol Metformin HCl 500 mg 01/17/19 17:00 01/17/19 16:41 Glucophage PO 500 mg BIDCC KATE Administration Rosuvastatin Calcium 10 mg 01/17/19 22:00 Crestor PO HS [facility] Patient Studies Lab Studies: Microbiology Studies 01/16/19 18:14 MRSA Culture (Admit) - Final Naris MRSA NOT DETECTED Lab Studies 01/17/19 01/17/19 01/17/19 Range/Units 06:06 06:06 06:06 WBC (4.8-10.8) K/uL RBC (4.40-5.90) Mil/uL Hgb (12.0-18.0) g/dL Hct (35.0-51.0) % MCV (80.0-94.0) fL MCH (27.0-31.0) pg MCHC (33.0-37.0) g/dL RDW (11.5-14.5) % Plt Count (130-400) K/uL MPV (7.2-11.7) fL Neut % (Auto) (50.0-75.0) % Lymph % (Auto) (20.0-40.0) % [place] % (Auto) (0.0-10.0) % Eos % (Auto) (0.0-4.0) % Baso % (Auto) (0.0-2.0) % Neut # (Auto) (1.8-7.0) K/uL Lymph # (Auto) (1.0-4.3) K/uL [place] # (Auto) (0.0-0.8) K/uL Eos # (Auto) (0.0-0.7) K/uL Baso # (Auto) (0.0-0.2) K/uL Sodium 137 (132-148) mmol/L Potassium 3.7 (3.6-5.2) mmol/L Chloride 109 H (98-107) mmol/L Carbon Dioxide 21 L (22-30) mmol/L Anion Gap 12 (10-20) BUN 11 (9-20) mg/dL Creatinine 0.3 L (0.8-1.5) mg/dL Est GFR ( Amer) > 60 Est GFR (Non-Af Amer) > 60 POC Glucose (mg/dL) (65-110) mg/dL Random Glucose 212 H (75-110) mg/dL Calcium 8.3 L (8.6-10.4) mg/dl Phosphorus 2.2 L (2.5-4.5) mg/dL Magnesium 2.0 (1.6-2.3) mg/dL Total Bilirubin 0.7 (0.2-1.3) mg/dL AST 45 (17-59) U/L ALT 43 (21-72) U/L Alkaline Phosphatase 78 (38-126) U/L Total Protein 5.9 L (6.3-8.3) g/dL Albumin 3.5 (3.5-5.0) g/dL Globulin 2.3 (2.2-3.9) gm/dL Albumin/Globulin Ratio 1.5 (1.0-2.1) Triglycerides 109 (0-149) mg/dL Cholesterol 161 (0-199) mg/dL LDL Cholesterol Direct 114 (0-129) mg/dL HDL Cholesterol 44 (30-70) mg/dL Free T4 0.99 (0.78-2.19) ng/dL 01/17/19 01/17/19 01/17/19 Range/Units 06:06 05:01 03:12 WBC 6.1 (4.8-10.8) K/uL RBC 4.42 (4.40-5.90) Mil/uL Hgb 14.0 D (12.0-18.0) g/dL Hct 40.1 (35.0-51.0) % MCV 90.7 (80.0-94.0) fL MCH 31.6 H (27.0-31.0) pg MCHC 34.9 (33.0-37.0) g/dL RDW 12.7 (11.5-14.5) % Plt Count 124 L D (130-400) K/uL MPV 11.3 (7.2-11.7) fL Neut % (Auto) 56.3 (50.0-75.0) % Lymph % (Auto) 34.4 (20.0-40.0) % [place] % (Auto) 6.4 (0.0-10.0) % Eos % (Auto) 2.7 (0.0-4.0) % Baso % (Auto) 0.2 (0.0-2.0) % Neut # (Auto) 3.5 (1.8-7.0) K/uL Lymph # (Auto) 2.1 (1.0-4.3) K/uL [place] # (Auto) 0.4 (0.0-0.8) K/uL Eos # (Auto) 0.2 (0.0-0.7) K/uL Baso # (Auto) 0.0 (0.0-0.2) K/uL Sodium (132-148) mmol/L Potassium (3.6-5.2) mmol/L Chloride (98-107) mmol/L Carbon Dioxide (22-30) mmol/L Anion Gap (10-20) BUN (9-20) mg/dL Creatinine (0.8-1.5) mg/dL Est GFR ( Amer) Est GFR (Non-Af Amer) POC Glucose (mg/dL) 235 H 235 H (65-110) mg/dL Random Glucose (75-110) mg/dL Calcium (8.6-10.4) mg/dl Phosphorus (2.5-4.5) mg/dL Magnesium (1.6-2.3) mg/dL Total Bilirubin (0.2-1.3) mg/dL AST (17-59) U/L ALT (21-72) U/L Alkaline Phosphatase (38-126) U/L Total Protein (6.3-8.3) g/dL Albumin (3.5-5.0) g/dL Globulin (2.2-3.9) gm/dL Albumin/Globulin Ratio (1.0-2.1) Triglycerides (0-149) mg/dL Cholesterol (0-199) mg/dL LDL Cholesterol Direct (0-129) mg/dL HDL Cholesterol (30-70) mg/dL Free T4 (0.78-2.19) ng/dL 01/17/19 01/17/19 01/17/19 Range/Units 02:10 01:12 01:00 WBC (4.8-10.8) K/uL RBC (4.40-5.90) Mil/uL Hgb (12.0-18.0) g/dL Hct (35.0-51.0) % MCV (80.0-94.0) fL MCH (27.0-31.0) pg MCHC (33.0-37.0) g/dL RDW (11.5-14.5) % Plt Count (130-400) K/uL MPV (7.2-11.7) fL Neut % (Auto) (50.0-75.0) % Lymph % (Auto) (20.0-40.0) % [place] % (Auto) (0.0-10.0) % Eos % (Auto) (0.0-4.0) % Baso % (Auto) (0.0-2.0) % Neut # (Auto) (1.8-7.0) K/uL Lymph # (Auto) (1.0-4.3) K/uL [place] # (Auto) (0.0-0.8) K/uL Eos # (Auto) (0.0-0.7) K/uL Baso # (Auto) (0.0-0.2) K/uL Sodium 136 (132-148) mmol/L Potassium 3.4 L (3.6-5.2) mmol/L Chloride 107 (98-107) mmol/L Carbon Dioxide 23 (22-30) mmol/L Anion Gap 9 L (10-20) BUN 11 (9-20) mg/dL Creatinine 0.4 L (0.8-1.5) mg/dL Est GFR ( Amer) > 60 Est GFR (Non-Af Amer) > 60 POC Glucose (mg/dL) 243 H 235 H (65-110) mg/dL Random Glucose 228 H (75-110) mg/dL Calcium 8.5 L (8.6-10.4) mg/dl Phosphorus 2.4 L (2.5-4.5) mg/dL Magnesium 2.0 (1.6-2.3) mg/dL Total Bilirubin (0.2-1.3) mg/dL AST (17-59) U/L ALT (21-72) U/L Alkaline Phosphatase (38-126) U/L Total Protein (6.3-8.3) g/dL Albumin (3.5-5.0) g/dL Globulin (2.2-3.9) gm/dL Albumin/Globulin Ratio (1.0-2.1) Triglycerides (0-149) mg/dL Cholesterol (0-199) mg/dL LDL Cholesterol Direct (0-129) mg/dL HDL Cholesterol (30-70) mg/dL Free T4 (0.78-2.19) ng/dL 01/16/19 01/16/19 01/16/19 Range/Units 23:39 23:01 22:06 WBC (4.8-10.8) K/uL RBC (4.40-5.90) Mil/uL Hgb (12.0-18.0) g/dL Hct (35.0-51.0) % MCV (80.0-94.0) fL MCH (27.0-31.0) pg MCHC (33.0-37.0) g/dL RDW (11.5-14.5) % Plt Count (130-400) K/uL MPV (7.2-11.7) fL Neut % (Auto) (50.0-75.0) % Lymph % (Auto) (20.0-40.0) % [place] % (Auto) (0.0-10.0) % Eos % (Auto) (0.0-4.0) % Baso % (Auto) (0.0-2.0) % Neut # (Auto) (1.8-7.0) K/uL Lymph # (Auto) (1.0-4.3) K/uL [place] # (Auto) (0.0-0.8) K/uL Eos # (Auto) (0.0-0.7) K/uL Baso # (Auto) (0.0-0.2) K/uL Sodium (132-148) mmol/L Potassium (3.6-5.2) mmol/L Chloride (98-107) mmol/L Carbon Dioxide (22-30) mmol/L Anion Gap (10-20) BUN (9-20) mg/dL Creatinine (0.8-1.5) mg/dL Est GFR ( Amer) Est GFR (Non-Af Amer) POC Glucose (mg/dL) 222 H 217 H 246 H (65-110) mg/dL Random Glucose (75-110) mg/dL Calcium (8.6-10.4) mg/dl Phosphorus (2.5-4.5) mg/dL Magnesium (1.6-2.3) mg/dL Total Bilirubin (0.2-1.3) mg/dL AST (17-59) U/L ALT (21-72) U/L Alkaline Phosphatase (38-126) U/L Total Protein (6.3-8.3) g/dL Albumin (3.5-5.0) g/dL Globulin (2.2-3.9) gm/dL Albumin/Globulin Ratio (1.0-2.1) Triglycerides (0-149) mg/dL Cholesterol (0-199) mg/dL LDL Cholesterol Direct (0-129) mg/dL HDL Cholesterol (30-70) mg/dL Free T4 (0.78-2.19) ng/dL 01/16/19 01/16/19 01/16/19 Range/Units 21:23 21:07 20:02 WBC (4.8-10.8) K/uL RBC (4.40-5.90) Mil/uL Hgb (12.0-18.0) g/dL Hct (35.0-51.0) % MCV (80.0-94.0) fL MCH (27.0-31.0) pg MCHC (33.0-37.0) g/dL RDW (11.5-14.5) % Plt Count (130-400) K/uL MPV (7.2-11.7) fL Neut % (Auto) (50.0-75.0) % Lymph % (Auto) (20.0-40.0) % [place] % (Auto) (0.0-10.0) % Eos % (Auto) (0.0-4.0) % Baso % (Auto) (0.0-2.0) % Neut # (Auto) (1.8-7.0) K/uL Lymph # (Auto) (1.0-4.3) K/uL [place] # (Auto) (0.0-0.8) K/uL Eos # (Auto) (0.0-0.7) K/uL Baso # (Auto) (0.0-0.2) K/uL Sodium 136 (132-148) mmol/L Potassium 3.5 L (3.6-5.2) mmol/L Chloride 108 H (98-107) mmol/L Carbon Dioxide 20 L (22-30) mmol/L Anion Gap 11 (10-20) BUN 10 (9-20) mg/dL Creatinine 0.4 L (0.8-1.5) mg/dL Est GFR ( Amer) > 60 Est GFR (Non-Af Amer) > 60 POC Glucose (mg/dL) 212 H 210 H (65-110) mg/dL Random Glucose 236 H D (75-110) mg/dL Calcium 8.4 L (8.6-10.4) mg/dl Phosphorus 2.4 L (2.5-4.5) mg/dL Magnesium 2.0 (1.6-2.3) mg/dL Total Bilirubin 0.8 (0.2-1.3) mg/dL AST 56 (17-59) U/L ALT 47 (21-72) U/L Alkaline Phosphatase 81 (38-126) U/L Total Protein 6.2 L (6.3-8.3) g/dL Albumin 3.5 D (3.5-5.0) g/dL Globulin 2.7 (2.2-3.9) gm/dL Albumin/Globulin Ratio 1.3 (1.0-2.1) Triglycerides (0-149) mg/dL Cholesterol (0-199) mg/dL LDL Cholesterol Direct (0-129) mg/dL HDL Cholesterol (30-70) mg/dL Free T4 (0.78-2.19) ng/dL 01/16/19 01/16/19 Range/Units 19:10 17:03 WBC (4.8-10.8) K/uL RBC (4.40-5.90) Mil/uL Hgb (12.0-18.0) g/dL Hct (35.0-51.0) % MCV (80.0-94.0) fL MCH (27.0-31.0) pg MCHC (33.0-37.0) g/dL RDW (11.5-14.5) % Plt Count (130-400) K/uL MPV (7.2-11.7) fL Neut % (Auto) (50.0-75.0) % Lymph % (Auto) (20.0-40.0) % [place] % (Auto) (0.0-10.0) % Eos % (Auto) (0.0-4.0) % Baso % (Auto) (0.0-2.0) % Neut # (Auto) (1.8-7.0) K/uL Lymph # (Auto) (1.0-4.3) K/uL [place] # (Auto) (0.0-0.8) K/uL Eos # (Auto) (0.0-0.7) K/uL Baso # (Auto) (0.0-0.2) K/uL Sodium (132-148) mmol/L Potassium (3.6-5.2) mmol/L Chloride (98-107) mmol/L Carbon Dioxide (22-30) mmol/L Anion Gap (10-20) BUN (9-20) mg/dL Creatinine (0.8-1.5) mg/dL Est GFR ( Amer) Est GFR (Non-Af Amer) POC Glucose (mg/dL) 199 H 163 H (65-110) mg/dL Random Glucose (75-110) mg/dL Calcium (8.6-10.4) mg/dl Phosphorus (2.5-4.5) mg/dL Magnesium (1.6-2.3) mg/dL Total Bilirubin (0.2-1.3) mg/dL AST (17-59) U/L ALT (21-72) U/L Alkaline Phosphatase (38-126) U/L Total Protein (6.3-8.3) g/dL Albumin (3.5-5.0) g/dL Globulin (2.2-3.9) gm/dL Albumin/Globulin Ratio (1.0-2.1) Triglycerides (0-149) mg/dL Cholesterol (0-199) mg/dL LDL Cholesterol Direct (0-129) mg/dL HDL Cholesterol (30-70) mg/dL Free T4 (0.78-2.19) ng/dL Laboratory Results - last 24 hr 01/16/19 01/16/19 01/16/19 17:03 19:10 20:02 WBC RBC Hgb Hct MCV MCH MCHC RDW Plt Count MPV Neut % (Auto) Lymph % (Auto) [place] % (Auto) Eos % (Auto) Baso % (Auto) Neut # (Auto) Lymph # (Auto) [place] # (Auto) Eos # (Auto) Baso # (Auto) Sodium Potassium Chloride Carbon Dioxide Anion Gap BUN Creatinine Est GFR ( Amer) Est GFR (Non-Af Amer) POC Glucose (mg/dL) 163 H 199 H 210 H Random Glucose Calcium Phosphorus Magnesium Total Bilirubin AST ALT Alkaline Phosphatase Total Protein Albumin Globulin Albumin/Globulin Ratio Triglycerides Cholesterol LDL Cholesterol Direct HDL Cholesterol Free T4 01/16/19 01/16/19 01/16/19 21:07 21:23 22:06 WBC RBC Hgb Hct MCV MCH MCHC RDW Plt Count MPV Neut % (Auto) Lymph % (Auto) [place] % (Auto) Eos % (Auto) Baso % (Auto) Neut # (Auto) Lymph # (Auto) [place] # (Auto) Eos # (Auto) Baso # (Auto) Sodium 136 Potassium 3.5 L Chloride 108 H Carbon Dioxide 20 L Anion Gap 11 BUN 10 Creatinine 0.4 L Est GFR ( Amer) > 60 Est GFR (Non-Af Amer) > 60 POC Glucose (mg/dL) 212 H 246 H Random Glucose 236 H D Calcium 8.4 L Phosphorus 2.4 L Magnesium 2.0 Total Bilirubin 0.8 AST 56 ALT 47 Alkaline Phosphatase 81 Total Protein 6.2 L Albumin 3.5 D Globulin 2.7 Albumin/Globulin Ratio 1.3 Triglycerides Cholesterol LDL Cholesterol Direct HDL Cholesterol Free T4 01/16/19 01/16/19 01/17/19 23:01 23:39 01:00 WBC RBC Hgb Hct MCV MCH MCHC RDW Plt Count MPV Neut % (Auto) Lymph % (Auto) [place] % (Auto) Eos % (Auto) Baso % (Auto) Neut # (Auto) Lymph # (Auto) [place] # (Auto) Eos # (Auto) Baso # (Auto) Sodium 136 Potassium 3.4 L Chloride 107 Carbon Dioxide 23 Anion Gap 9 L BUN 11 Creatinine 0.4 L Est GFR ( Amer) > 60 Est GFR (Non-Af Amer) > 60 POC Glucose (mg/dL) 217 H 222 H Random Glucose 228 H Calcium 8.5 L Phosphorus 2.4 L Magnesium 2.0 Total Bilirubin AST ALT Alkaline Phosphatase Total Protein Albumin Globulin Albumin/Globulin Ratio Triglycerides Cholesterol LDL Cholesterol Direct HDL Cholesterol Free T4 01/17/19 01/17/19 01/17/19 01:12 02:10 03:12 WBC RBC Hgb Hct MCV MCH MCHC RDW Plt Count MPV Neut % (Auto) Lymph % (Auto) [place] % (Auto) Eos % (Auto) Baso % (Auto) Neut # (Auto) Lymph # (Auto) [place] # (Auto) Eos # (Auto) Baso # (Auto) Sodium Potassium Chloride Carbon Dioxide Anion Gap BUN Creatinine Est GFR ( Amer) Est GFR (Non-Af Amer) POC Glucose (mg/dL) 235 H 243 H 235 H Random Glucose Calcium Phosphorus Magnesium Total Bilirubin AST ALT Alkaline Phosphatase Total Protein Albumin Globulin Albumin/Globulin Ratio Triglycerides Cholesterol LDL Cholesterol Direct HDL Cholesterol Free T4 01/17/19 01/17/19 01/17/19 05:01 06:06 06:06 WBC 6.1 RBC 4.42 Hgb 14.0 D Hct 40.1 MCV 90.7 MCH 31.6 H MCHC 34.9 RDW 12.7 Plt Count 124 L D MPV 11.3 Neut % (Auto) 56.3 Lymph % (Auto) 34.4 [place] % (Auto) 6.4 Eos % (Auto) 2.7 Baso % (Auto) 0.2 Neut # (Auto) 3.5 Lymph # (Auto) 2.1 [place] # (Auto) 0.4 Eos # (Auto) 0.2 Baso # (Auto) 0.0 Sodium 137 Potassium 3.7 Chloride 109 H Carbon Dioxide 21 L Anion Gap 12 BUN 11 Creatinine 0.3 L Est GFR ( Amer) > 60 Est GFR (Non-Af Amer) > 60 POC Glucose (mg/dL) 235 H Random Glucose 212 H Calcium 8.3 L Phosphorus 2.2 L Magnesium 2.0 Total Bilirubin 0.7 AST 45 ALT 43 Alkaline Phosphatase 78 Total Protein 5.9 L Albumin 3.5 Globulin 2.3 Albumin/Globulin Ratio 1.5 Triglycerides Cholesterol LDL Cholesterol Direct HDL Cholesterol Free T4 01/17/19 01/17/19 06:06 06:06 WBC RBC Hgb Hct MCV MCH MCHC RDW Plt Count MPV Neut % (Auto) Lymph % (Auto) [place] % (Auto) Eos % (Auto) Baso % (Auto) Neut # (Auto) Lymph # (Auto) [place] # (Auto) Eos # (Auto) Baso # (Auto) Sodium Potassium Chloride Carbon Dioxide Anion Gap BUN Creatinine Est GFR ( Amer) Est GFR (Non-Af Amer) POC Glucose (mg/dL) Random Glucose Calcium Phosphorus Magnesium Total Bilirubin AST ALT Alkaline Phosphatase Total Protein Albumin Globulin Albumin/Globulin Ratio Triglycerides 109 Cholesterol 161 LDL Cholesterol Direct 114 HDL Cholesterol 44 Free T4 0.99 Critical Care Progress Note - Nutrition Nutrition: Nutrition Category Date Time Status Consistent Carbohydrate [DIET] Diets 01/17/19 Breakfast Active Assessment/Plan - Assessment and Plan (Free Text) Plan: anion gap closed -switch from IV to sub Q insulin -endocrine follow up -diabetic nurse educator assistance -remains hemodynamically stable -start asa + statin - Date & Time Date: 01/17/19 Time: 20:09
[2019-01-17] MEDS ORDERED: Potassium & Sodium Phosphate PO ONE (11:45)
--- NOTE | 2019-01-17 14:01 | CARD ---
APPROVED REPORT Date of service: 01/16/2019 EKG Measurement Heart [id number] <Conclusion> Normal sinus rhythm Normal ECG
[2019-01-17] MEDS: (Novolin R) Insulin Human Regular 100 units/ml vial SC SCH ×2 (16:50→21:30)
--- NOTE | 2019-01-17 19:18 | CP.PCM.PN ---
Subjective - Date & Time of Evaluation Date of Evaluation: 01/17/19 Time of Evaluation: 17:00 - Subjective Subjective: Hospitalist Progress Note Patient was seen and examined at 5:00 PM 01/17/19 Patient was admitted for treatment of DKA Currently upon FULL ROS: NO chest pain NO palpitations NO SOB/Cough NO abdominal pain NO n/v/d/c NO burning/pain with urination NO headache NO new changes in vision NO new changes in hearing NO paresthesias Exam: General: AAOx3, NAD HEENT: NCA, PERRLA, EOMI, NO pharyngeal erythema/exudate, NO lymphadenopathy Cardio: NS1 and NS2, NO M/R/R Resp: CTA B/L, NO R/R/W GI: BSx4, Soft, NT, ND, NO guarding/rebound tenderness Ext: Pulses are strong and equal, Capillary Refill is 2 seconds Neuro: CN II through XII are grossly intact Assessment and Plan: 1). DKA Status: resolved Patient was not aware that he had Diabetes NPH Insulin 14 units SC HS Metformin 500 mg PO BID Glipizide 10 mg PO BID Crestor 5 mg PO HS HOLD off on LAKEISHA I considering low blood pressure Endocrine Dr. Haile Will confirm with nursing on 01/18/19 that patient can measure out and then administer insulin and once confirmed will discharge Explained to patient that he will need to establish care with our clinic Explained his diagnosis Seen with Resident Nila Rowe who helped to translate Vietnamese Miguelito Hoskins D.O. Objective - Vital Signs/Intake and Output Vital Signs (last 24 hours): Temp Pulse Resp BP Pulse Ox 97.9 F 61 18 98/64 L 100 01/17/19 16:00 01/17/19 16:00 01/17/19 16:00 01/17/19 16:00 01/17/19 16:00 Intake and Output: 01/17/19 01/18/19 18:59 06:59 Intake Total 1997.00 Output Total 880 Balance 1117.00 - Medications Medications: Current Medications Aspirin (Ecotrin) 81 mg PO DAILY KATE Last Admin: 01/17/19 09:57 Dose: 81 mg Dextrose (Dextrose 50% Inj) 0 ml IV STAT PRN; Protocol PRN Reason: Hypoglycemia Protocol Dextrose (Glutose 15) 0 gm PO ONCE PRN; Protocol PRN Reason: Hypoglycemia Protocol Enoxaparin Sodium (Lovenox) 40 mg SC DAILY [facility] Last Admin: 01/17/19 09:57 Dose: 40 mg Famotidine (Pepcid) 20 mg PO DAILY [facility] Last Admin: 01/17/19 09:57 Dose: 20 mg Glipizide (Glucotrol) 10 mg PO ACBD [facility] Last Admin: 01/17/19 16:43 Dose: 10 mg Glucagon (Glucagen Diagnostic Kit) 0 mg IM STAT PRN; Protocol PRN Reason: Hypoglycemia Protocol Dextrose (Dextrose 5% In Water 1000 Ml) 1,000 mls @ 0 mls/hr IV .Q0M PRN; Protocol PRN Reason: Hypoglycemia Protocol Sodium Chloride (Sodium Chloride 0.45%) 1,000 mls @ 100 mls/hr IV .Q10H [facility] Last Admin: 01/17/19 08:43 Dose: 100 mls/hr Insulin Human NPH (Novolin N) 14 unit SC HS [facility] Insulin Human Regular (Novolin R) 0 unit SC ACHS [facility]; Protocol Last Admin: 01/17/19 16:50 Dose: Not Given Metformin HCl (Glucophage) 500 mg PO BIDCC [facility] Last Admin: 01/17/19 16:41 Dose: 500 mg Rosuvastatin Calcium (Crestor) 10 mg PO HS [facility] - Labs Labs: 01/17/19 06:06 01/17/19 06:06
[2019-01-17] MEDS ORDERED: (Novolin N) Insulin Human Isophane (NPH) 100 u/ml 10 ml vial SC SCH (22:00)
[2019-01-17 23:29] VITALS: RESP 20
--- NOTE | 2019-01-18 01:42 | CON ---
DATE: 01/17/2019 ENDOCRINOLOGY CONSULTATION LOCATION: ICU room 7. HISTORY OF PRESENT ILLNESS: This is a 43-year-old male, presenting here with progressive polyuria, nocturia, polydipsia and weight loss and evaluated to have recent onset of uncontrolled type 2 diabetes and is now being referred for diabetic evaluation and management. PAST MEDICAL HISTORY: Essentially unremarkable. PAST SURGICAL HISTORY: He had a left knee surgery a few years ago. FAMILY HISTORY: Positive for diabetes and hypertension. SOCIAL HISTORY: The patient has supportive family. No known substance use. REVIEW OF SYSTEMS: Admits to generalized body weakness with episodic bouts of dizziness and lightheadedness, worse in the last week or so prior to admission with marked polydipsia and consumption of sugary drinks a week or so prior to admission. No chest pain or palpitations. His oral intake has been variable with nausea and dyspepsia but no overt vomiting episodes. Also admits to marked polyuria and nocturia. PHYSICAL EXAMINATION: GENERAL: This is an overweight male, in no apparent distress. VITAL SIGNS: With a blood pressure of 140/80, pulse of 100 beats per minute and regular, temperature 98, respirations 20. Height is 5 feet 4 inches. Weight is 204 pounds. HEENT: Head: Normocephalic. Eyes: Anicteric with pink conjunctivae. Funduscopy is not possible at this time. Ears, nose and throat otherwise normal. NECK: Supple. Thyroid gland is normal size. No carotid bruits or any cervical adenopathy. CARDIOPULMONARY: Some adynamic precordium. S1 and S2 are rapid and regular. Lungs are clear to auscultation. ABDOMEN: Flat, soft with positive bowel sounds. EXTREMITIES: No peripheral edema. Pulses are +2 bilaterally. LABORATORY DATA: His initial chemistry showed a BUN of 11, sodium 137, potassium 4.2, chloride 98, CO2 is 17, glucose is 442, and creatinine is 0.6. A1c is 11.3% which is expected to be elevated since he has been untreated prior to admission. TSH is 0.4 indicative of the so-called acute sick euthyroid syndrome. ASSESSMENT: This is a 43-year-old male with uncontrolled and decompensated type 2 diabetes, presenting here with hyperosmolar hyperglycemic state and mild ketosis. PLAN OF MANAGEMENT: We will change his basal insulin ordered as Lantus of 19 units to a more affordable NPH insulin since the patient has no financial resources at this time. We will change the NPH given at bedtime to 14 units subcu to start tonight. We will add oral hypoglycemic therapy with metformin given as 500 mg b.i.d. and glipizide at 10 mg b.i.d. as ordered to start today. We will obtain serial chemistries and supplement accordingly as needed. We will reinforce diabetic education and dietary instructions at the time of this admission. Pili Haile MD
[2019-01-18] MEDS: Sodium Chloride 0.45% 1,000 ML IV SCH (06:08)
[2019-01-18 07:54] LABS: BASO % 0.3 % (0.0-2.0); EOS # 0.2 K/uL (0.0-0.7); EOS % 3.3 % (0.0-4.0); HEMOGLOBIN 14.8 g/dL (12.0-18.0); LYMPH # 2.4 K/uL (1.0-4.3); LYMPH % 43.8 % (20.0-40.0); MEAN CELL VOLUME 89.9 fL (80.0-94.0); MEAN CORPUSCULAR HGB CONC 35.6 g/dL (33.0-37.0); MEAN PLATELET VOLUME 10.6 fL (7.2-11.7); MONO # 0.3 K/uL (0.0-0.8); MONO % 5.8 % (0.0-10.0); NEUT # 2.6 K/uL (1.8-7.0); NEUT % 46.8 % (50.0-75.0); NRBC % 0.2 % (0.0-2.0); RBC 4.63 Mil/uL (4.40-5.90); RED CELL DISTRIBUTION WIDTH 12.8 % (11.5-14.5); WHITE BLOOD COUNT 5.5 K/uL (4.8-10.8)
[2019-01-18 08:10] LABS: ALB/GLOB RATIO 1.4 (1.0-2.1); ALBUMIN 3.3 g/dL (3.5-5.0); ALT/SGPT 53 U/L (21-72); AST/SGOT 53 U/L (17-59); BLOOD UREA NITROGEN 10 mg/dL (9-20); CALCIUM 8.4 mg/dl (8.6-10.4); GFR NON-AFRICAN AMERICAN > 60
[2019-01-18] MEDS: (Novolin R) Insulin Human Regular 100 units/ml vial SC SCH ×2 (08:10→11:30)
[2019-01-18] MEDS: Enoxaparin 40 mg Syringe SC SCH ×2 (08:12→13:51)
[2019-01-18] MEDS ORDERED: (Lantus) Insulin Glargine, Recombinant SC SCH (10:00)
--- NOTE | 2019-01-18 13:25 | CP.PCM.DIS ---
<Dante Wong - Last Filed: 01/18/19 13:40> Provider - Provider Date of Admission: 01/16/19 11:23 Attending physician: Miguelito Hoskins MD Primary care physician: PMD: none at time of admission Dr Sameer Hoskins, hospitalist Consults: 01/16/19 11:25 Critical Care Consult Stat Comment: I've already spoken to Dr. Hoskins Consulting Provider: Timi Hoskins Consulting Physician: Timi Hoskins Reason for Consult: DKA 01/16/19 21:40 Diabetic Education Referral Routine Comment: Physician Instructions: Reason For Exam: New Onset Diabetes 01/17/19 08:33 Endocrinology Consult Routine Comment: Consulting Provider: Pili Haile Consulting Physician: Pili Haile Reason for Consult: DKA Time Spent in preparation of Discharge (in minutes): 39 Diagnosis - Discharge Diagnosis (1) DKA (diabetic ketoacidoses) Status: Acute Comment: DKA - admitted to ICU. New diagnosis of DM. Instruction/education given to insulin naive patient. See full admission course for further details Hospital Course - Lab Results Lab Results: Micro Results 01/16/19 18:14 Naris MRSA Culture (Admit) - Final MRSA NOT DETECTED Most Recent Lab Values WBC 5.5 K/uL (4.8-10.8) 01/18/19 07:41 RBC 4.63 Mil/uL (4.40-5.90) 01/18/19 07:41 Hgb 14.8 g/dL (12.0-18.0) 01/18/19 07:41 Hct 41.6 % (35.0-51.0) 01/18/19 07:41 MCV 89.9 fL (80.0-94.0) 01/18/19 07:41 MCH 32.0 pg (27.0-31.0) H 01/18/19 07:41 MCHC 35.6 g/dL (33.0-37.0) 01/18/19 07:41 RDW 12.8 % (11.5-14.5) 01/18/19 07:41 Plt Count 127 K/uL (130-400) L 01/18/19 07:41 MPV 10.6 fL (7.2-11.7) 01/18/19 07:41 Neut % (Auto) 46.8 % (50.0-75.0) L 01/18/19 07:41 Lymph % (Auto) 43.8 % (20.0-40.0) H 01/18/19 07:41 Reagan % (Auto) 5.8 % (0.0-10.0) 01/18/19 07:41 Eos % (Auto) 3.3 % (0.0-4.0) 01/18/19 07:41 Baso % (Auto) 0.3 % (0.0-2.0) 01/18/19 07:41 Neut # (Auto) 2.6 K/uL (1.8-7.0) 01/18/19 07:41 Lymph # (Auto) 2.4 K/uL (1.0-4.3) 01/18/19 07:41 Reagan # (Auto) 0.3 K/uL (0.0-0.8) 01/18/19 07:41 Eos # (Auto) 0.2 K/uL (0.0-0.7) 01/18/19 07:41 Baso # (Auto) 0.0 K/uL (0.0-0.2) 01/18/19 07:41 Puncture Site Rra 01/16/19 10:51 pCO2 28 mm/Hg (35-45) L 01/16/19 10:51 pO2 94 mm/Hg (80-100) 01/16/19 10:51 HCO3 16.0 mmol/L (21-28) L 01/16/19 10:51 ABG pH 7.29 (7.35-7.45) L 01/16/19 10:51 ABG Total CO2 14.4 mmol/L (22-28) L 01/16/19 10:51 ABG O2 Saturation 99.1 % (95-98) H 01/16/19 10:51 ABG Base Excess -11.4 mmol/L (-2.0-3.0) L 01/16/19 10:51 ABG Hemoglobin 15.6 g/dL (11.7-17.4) 01/16/19 10:51 ABG Carboxyhemoglobin 2.1 % (0.5-1.5) H 01/16/19 10:51 POC ABG HHb (Measured) 0.9 % (0.0-5.0) 01/16/19 10:51 ABG Methemoglobin 0.9 % (0.0-3.0) 01/16/19 10:51 Ramírez Test Pos 01/16/19 10:51 A-a O2 Difference 21.0 mm/Hg 01/16/19 10:51 Respiratory Index 0.2 01/16/19 10:51 Hgb O2 Saturation 96.1 % (95.0-98.0) 01/16/19 10:51 FiO2 21.0 % 01/16/19 10:51 Sodium 135 mmol/L (132-148) 01/18/19 07:41 Potassium 3.4 mmol/L (3.6-5.2) L 01/18/19 07:41 Chloride 103 mmol/L (98-107) 01/18/19 07:41 Carbon Dioxide 23 mmol/L (22-30) 01/18/19 07:41 Anion Gap 12 (10-20) 01/18/19 07:41 BUN 10 mg/dL (9-20) 01/18/19 07:41 Creatinine 0.4 mg/dL (0.8-1.5) L 01/18/19 07:41 Est GFR ( Amer) > 60 01/18/19 07:41 Est GFR (Non-Af Amer) > 60 01/18/19 07:41 POC Glucose (mg/dL) 326 mg/dL (65-110) H 01/18/19 11:19 Random Glucose 223 mg/dL (75-110) H 01/18/19 07:41 Hemoglobin A1c 11.3 % (4.2-6.5) H 01/16/19 11:41 Serum Osmolality 309 mosm/kg (272-300) H 01/16/19 14:03 Calcium 8.4 mg/dl (8.6-10.4) L 01/18/19 07:41 Phosphorus 3.2 mg/dL (2.5-4.5) 01/18/19 07:41 Magnesium 1.8 mg/dL (1.6-2.3) 01/18/19 07:41 Total Bilirubin 0.7 mg/dL (0.2-1.3) 01/18/19 07:41 AST 53 U/L (17-59) 01/18/19 07:41 ALT 53 U/L (21-72) 01/18/19 07:41 Alkaline Phosphatase 76 U/L (38-126) 01/18/19 07:41 Troponin I < 0.0120 ng/mL (0.00-0.120) 01/16/19 10:36 NT-Pro-B Natriuret Pep 36.0 pg/mL (0-450) 01/16/19 10:36 Total Protein 5.6 g/dL (6.3-8.3) L 01/18/19 07:41 Albumin 3.3 g/dL (3.5-5.0) L 01/18/19 07:41 Globulin 2.3 gm/dL (2.2-3.9) 01/18/19 07:41 Albumin/Globulin Ratio 1.4 (1.0-2.1) 01/18/19 07:41 Triglycerides 109 mg/dL (0-149) 01/17/19 06:06 Cholesterol 161 mg/dL (0-199) 01/17/19 06:06 LDL Cholesterol Direct 114 mg/dL (0-129) 01/17/19 06:06 HDL Cholesterol 44 mg/dL (30-70) 01/17/19 06:06 Free T4 0.99 ng/dL (0.78-2.19) 01/17/19 06:06 TSH 3rd Generation 0.40 mIU/L (0.46-4.68) L 01/16/19 10:36 Urine Color Yellow (YELLOW) 01/16/19 10:36 Urine Clarity Clear (Clear) 01/16/19 10:36 Urine pH 5.0 (5.0-8.0) 01/16/19 10:36 Ur Specific [place] 1.032 (1.003-1.030) H 01/16/19 10:36 Urine Protein Negative mg/dL (NEGATIVE) 01/16/19 10:36 Urine Glucose (UA) 3+ mg/dL (Normal) H 01/16/19 10:36 Urine Ketones 2+ mg/dL (NEGATIVE) H 01/16/19 10:36 Urine Blood Negative (NEGATIVE) 01/16/19 10:36 Urine Nitrate Negative (NEGATIVE) 01/16/19 10:36 Urine Bilirubin Negative (NEGATIVE) 01/16/19 10:36 Urine Urobilinogen Normal mg/dL (0.2-1.0) 01/16/19 10:36 Ur Leukocyte Esterase Neg Angie/uL (Negative) 01/16/19 10:36 Urine WBC (Auto) 2 /hpf (0-5) 01/16/19 10:36 Urine RBC (Auto) < 1 /hpf (0-3) 01/16/19 10:36 Ur Squamous Epith Cells < 1 /hpf (0-5) 01/16/19 10:36 Hyaline Casts 3-5 /lpf (0-2) H 01/16/19 10:36 Urine Opiates Screen Negative (NEGATIVE) 01/16/19 11:53 Urine Methadone Screen Negative (NEGATIVE) 01/16/19 11:53 Ur Barbiturates Screen Negative (NEGATIVE) 01/16/19 11:53 Ur Phencyclidine Scrn Negative (NEGATIVE) 01/16/19 11:53 Ur Amphetamines Screen Negative (NEGATIVE) 01/16/19 11:53 U Benzodiazepines Scrn Negative (NEGATIVE) 01/16/19 11:53 U Oth Cocaine Metabols Negative (NEGATIVE) 01/16/19 11:53 U Cannabinoids Screen Negative (NEGATIVE) 01/16/19 11:53 - Hospital Course Hospital Course: On admission: Patient is a 43yo M with no reported PMH presenting to the ED for dry mouth. Patient reports 4 day history of dry mouth, increased thirst, and increased urination. He denies prior history of this. He reports associated fatigue. He tried taking advil at home which slightly helped his symptoms. He denies any dizziness, loss of consciousness, blurry vision, headache, nausea, or vomiting. He denies any recent illness, sick contacts, or recent travel. He reports drinking sweet iced tea regularly and does not limit his diet from sugary foods. He denies shortness of breath, chest pain, or diarrhea. Hospital course: Admission on 01/16/19 for DKA as evidenced by uncontrolled BG and widened anion gap. Initial bicarb 17. Troponin/BNP negative. A1c 11.3. Patient admitted to ICU under care of Dr Luz Hoskins, battery test engineer. Pt started on insulin drip, and serial CMPs were monitored until anion gap closed. K repleted. Production Tech, Dr Haile, was consulted to help setup insulin regimen. Pt transferred from ICU to med/surg on 01/17/19. Education given to patient regarding how to inject insulin by nursing staff. He was started on statin, metformin, and glipizide. See Discharge instructions below for further detail. He will need f/u with clinic after discharge. Discharge Exam - Head Exam Head Exam: ATRAUMATIC, NORMAL INSPECTION, NORMOCEPHALIC - Eye Exam Eye Exam: EOMI, Normal appearance. absent: Scleral icterus Pupil Exam: PERRL - ENT Exam ENT Exam: Mucous Membranes Moist - Respiratory Exam Respiratory Exam: Clear to PA & Lateral. absent: Rales, Rhonchi, Wheezes, UNREMARKABLE - Cardiovascular Exam Cardiovascular Exam: REGULAR RHYTHM, +S1, +S2 - GI/Abdominal Exam GI & Abdominal Exam: Normal Bowel Sounds, Soft. absent: Tenderness - Extremities Exam Extremities exam: normal inspection - Back Exam Back exam: absent: CVA tenderness (L), CVA tenderness (R) - Neurological Exam Neurological exam: Alert, CN II-XII Intact, Normal Gait, Oriented x3 - Psychiatric Exam Psychiatric exam: Normal Affect, Normal Mood - Skin Skin Exam: Normal Color, Warm Discharge Plan - Discharge Medications Prescriptions: Atorvastatin [Lipitor] 10 mg PO DIN #30 tab GlipiZIDE [Glucotrol] 10 mg PO ACBD #60 tab Insulin Human Isophane (NPH) [Novolin N] 20 unit SC HS #1000 unit Lisinopril 2.5 mg PO DAILY #30 tablet metFORMIN [glucOPHAGE] 500 mg PO BIDCC #60 tab - Follow Up Plan Condition: GOOD Disposition: HOME/ ROUTINE Instructions: Insulin NPH, Type 2 Diabetes, Diabetic Ketoacidosis, Low Blood Sugar in People With Diabetes, The ABCs of Diabetes, Diabetic Ketoacidosis (DC), Atorvastatin, Glipizide, Lisinopril, Metformin, Diabetic Meal Planning Additional Instructions: Las siguientes instrucciones se repasaron con el paciente y se le entregar naomy copia en ingls y espaol: 1). Debe hacer naomy shanon con el [facility], que es la clnica ubicada en el [address] del [facility] en [address] en [place], [place]. Llame a katerin lunes 01/20/19 para naomy shanon que tendr lugar en los prximos 7 a 10 sands. Los mdicos de esta clnica sern cirilo mdicos de atencin primaria para ayudarlo a coordinar ortiz atencin mdica. 2). Deberas desayunar a las 7:30 AM, almorzar a la 1:30 PM y cenar a las 7:30 PM 3). Compre naomy mquina de medicin de glucosa de [place]. 4). Mida y anote cul es ortiz nivel de azcar en la sarah de la siguiente manera y llvelo a ortiz shanon con la [facility]: Rey 01/19/19 a las 7 AM y 1 PM Lunes 01/20/19 a las 7 AM y 7 PM Malena 01/21/19 a las 7 AM y 10 PM Mircoles 01/22/19 a las 7 AM y 1 PM Jueves 01/23/19 a las 7 AM y 7 PM Viernes 01/24/19 a las 7 AM y 10 PM Sbado 01/25/19 a las 7 AM y 1 PM Rey 01/26/19 a las 7 AM y 7 PM Lunes 01/27/19 a las 7 AM y 10 PM 5). Debe tener las siguientes recetas surtidas en la [facility] en ortiz nguyen a casa desde el hospital: Lisinopril 2.5 mg, 1 tableta por va oral naomy vez al da a las 7:30 AM Atorvastatina 10 mg, 1 tableta por va oral naomy vez al da a las 7:30 p.m. Metformina 500 mg, 1 tableta por va oral a las 7:30 AM y 1 tableta por va oral a las 7:30 PM Glipizide 10 mg, 1 tableta por va oral a las 7:30 AM y 1 tableta por va oral a las 7:30 PM Insulina NPH N, 20 unidades inyectadas por va subcutnea a la hora de acostarse 10 PM 6). Cudese, camine anton 30 minutos todos los sands, denia mary lou agua anton todo el da, piense siempre mejor en el bhargavi de lo que ya es, y asegrese y disfrute de un viaje al cine para sanjay naomy buena pelcula. Miguelito Hoskins D.O. The following instructions were gone over with the patient and a copy will be provided to him in Liberian and Liberian: 1). You must make an appointment with the [facility] which is the clinic at [facility] located Floor [address] at [address] [place] [address] in [place], [place]. Call this Sunday01/20/19 for an appointment to take place in the next 7 to 10 days. The doctors at this clinic will be your primary care doctors to help you coordinate your health care. 2). You should eat breakfast at 7:30 AM, you should eat lunch at 1:30 PM, and you should eat dinner at 7:30 PM 3). Purchase a glucose measuring machine from [facility]. 4). Measure and write down what your blood sugar level is in the following manner and bring with you to your appointment with the [facility] Clinic: Sunday01/19/19 at 7 AM and 1 PM Sunday01/20/19 at 7 AM and 7 PM Sunday01/21/19 at 7 AM and 10 PM Sunday01/22/19 at 7 AM and 1 PM 01/23/19 at 7 AM and 7 PM Sunday01/24/19 at 7 AM and 10 PM Sunday01/25/19 at 7 AM and 1 PM Sunday01/26/19 at 7 AM and 7 PM Sunday01/27/19 at 7 AM and 10 PM 5). You must have the following prescriptions filled at the [facility] on your way home from the hospital: Lisinopril 2.5 mg, 1 tablet by mouth once a day at 7:30 AM Atorvastatin 10 mg, 1 tablet by mouth once a day at 7:30 PM Metformin 500 mg, 1 tablet by mouth at 7:30 AM and 1 tablet by mouth at 7:30 PM Glipizide 10 mg, 1 tablet by mouth at 7:30 AM and 1 tablet by mouth at 7:30 PM Insulin NPH N, 20 units inject subcutaneous at bedtime 10 PM 6). Please take care of yourself, walk for 30 minutes everyday, drink plenty of water throughout the day, always think better of the world than it already it is, and make sure and treat yourself with a trip to the movie theater to catch a good movie. Miguelito Hoskins D.O. <Miguelito Hoskins - Last Filed: 01/21/19 12:36> Provider - Provider Date of Admission: 01/16/19 11:23 Attending physician: Miguelito Hoskins MD Consults: 01/16/19 11:25 Critical Care Consult Stat Comment: I've already spoken to Dr. Hoskins Consulting Provider: Timi Hoskins Consulting Physician: Timi Hoskins Reason for Consult: DKA 01/16/19 21:40 Diabetic Education Referral Routine Comment: Physician Instructions: Reason For Exam: New Onset Diabetes 01/17/19 08:33 Endocrinology Consult Routine Comment: Consulting Provider: Pili Haile Consulting Physician: Pili Haile Reason for Consult: DKA Hospital Course - Lab Results Lab Results: Micro Results 01/17/19 18:53 Naris MRSA Culture - Final MRSA NOT DETECTED 01/16/19 18:14 Naris MRSA Culture (Admit) - Final MRSA NOT DETECTED Most Recent Lab Values WBC 5.5 K/uL (4.8-10.8) 01/18/19 07:41 RBC 4.63 Mil/uL (4.40-5.90) 01/18/19 07:41 Hgb 14.8 g/dL (12.0-18.0) 01/18/19 07:41 Hct 41.6 % (35.0-51.0) 01/18/19 07:41 MCV 89.9 fL (80.0-94.0) 01/18/19 07:41 MCH 32.0 pg (27.0-31.0) H 01/18/19 07:41 MCHC 35.6 g/dL (33.0-37.0) 01/18/19 07:41 RDW 12.8 % (11.5-14.5) 01/18/19 07:41 Plt Count 127 K/uL (130-400) L 01/18/19 07:41 MPV 10.6 fL (7.2-11.7) 01/18/19 07:41 Neut % (Auto) 46.8 % (50.0-75.0) L 01/18/19 07:41 Lymph % (Auto) 43.8 % (20.0-40.0) H 01/18/19 07:41 Reagan % (Auto) 5.8 % (0.0-10.0) 01/18/19 07:41 Eos % (Auto) 3.3 % (0.0-4.0) 01/18/19 07:41 Baso % (Auto) 0.3 % (0.0-2.0) 01/18/19 07:41 Neut # (Auto) 2.6 K/uL (1.8-7.0) 01/18/19 07:41 Lymph # (Auto) 2.4 K/uL (1.0-4.3) 01/18/19 07:41 Reagan # (Auto) 0.3 K/uL (0.0-0.8) 01/18/19 07:41 Eos # (Auto) 0.2 K/uL (0.0-0.7) 01/18/19 07:41 Baso # (Auto) 0.0 K/uL (0.0-0.2) 01/18/19 07:41 Puncture Site Rra 01/16/19 10:51 pCO2 28 mm/Hg (35-45) L 01/16/19 10:51 pO2 94 mm/Hg (80-100) 01/16/19 10:51 HCO3 16.0 mmol/L (21-28) L 01/16/19 10:51 ABG pH 7.29 (7.35-7.45) L 01/16/19 10:51 ABG Total CO2 14.4 mmol/L (22-28) L 01/16/19 10:51 ABG O2 Saturation 99.1 % (95-98) H 01/16/19 10:51 ABG Base Excess -11.4 mmol/L (-2.0-3.0) L 01/16/19 10:51 ABG Hemoglobin 15.6 g/dL (11.7-17.4) 01/16/19 10:51 ABG Carboxyhemoglobin 2.1 % (0.5-1.5) H 01/16/19 10:51 POC ABG HHb (Measured) 0.9 % (0.0-5.0) 01/16/19 10:51 ABG Methemoglobin 0.9 % (0.0-3.0) 01/16/19 10:51 Ramírez Test Pos 01/16/19 10:51 A-a O2 Difference 21.0 mm/Hg 01/16/19 10:51 Respiratory Index 0.2 01/16/19 10:51 Hgb O2 Saturation 96.1 % (95.0-98.0) 01/16/19 10:51 FiO2 21.0 % 01/16/19 10:51 Sodium 135 mmol/L (132-148) 01/18/19 07:41 Potassium 3.4 mmol/L (3.6-5.2) L 01/18/19 07:41 Chloride 103 mmol/L (98-107) 01/18/19 07:41 Carbon Dioxide 23 mmol/L (22-30) 01/18/19 07:41 Anion Gap 12 (10-20) 01/18/19 07:41 BUN 10 mg/dL (9-20) 01/18/19 07:41 Creatinine 0.4 mg/dL (0.8-1.5) L 01/18/19 07:41 Est GFR ( Amer) > 60 01/18/19 07:41 Est GFR (Non-Af Amer) > 60 01/18/19 07:41 POC Glucose (mg/dL) 326 mg/dL (65-110) H 01/18/19 11:19 Random Glucose 223 mg/dL (75-110) H 01/18/19 07:41 Hemoglobin A1c 11.3 % (4.2-6.5) H 01/16/19 11:41 Serum Osmolality 309 mosm/kg (272-300) H 01/16/19 14:03 Calcium 8.4 mg/dl (8.6-10.4) L 01/18/19 07:41 Phosphorus 3.2 mg/dL (2.5-4.5) 01/18/19 07:41 Magnesium 1.8 mg/dL (1.6-2.3) 01/18/19 07:41 Total Bilirubin 0.7 mg/dL (0.2-1.3) 01/18/19 07:41 AST 53 U/L (17-59) 01/18/19 07:41 ALT 53 U/L (21-72) 01/18/19 07:41 Alkaline Phosphatase 76 U/L (38-126) 01/18/19 07:41 Troponin I < 0.0120 ng/mL (0.00-0.120) 01/16/19 10:36 NT-Pro-B Natriuret Pep 36.0 pg/mL (0-450) 01/16/19 10:36 Total Protein 5.6 g/dL (6.3-8.3) L 01/18/19 07:41 Albumin 3.3 g/dL (3.5-5.0) L 01/18/19 07:41 Globulin 2.3 gm/dL (2.2-3.9) 01/18/19 07:41 Albumin/Globulin Ratio 1.4 (1.0-2.1) 01/18/19 07:41 Triglycerides 109 mg/dL (0-149) 01/17/19 06:06 Cholesterol 161 mg/dL (0-199) 01/17/19 06:06 LDL Cholesterol Direct 114 mg/dL (0-129) 01/17/19 06:06 HDL Cholesterol 44 mg/dL (30-70) 01/17/19 06:06 Free T4 0.99 ng/dL (0.78-2.19) 01/17/19 06:06 TSH 3rd Generation 0.40 mIU/L (0.46-4.68) L 01/16/19 10:36 Urine Color Yellow (YELLOW) 01/16/19 10:36 Urine Clarity Clear (Clear) 01/16/19 10:36 Urine pH 5.0 (5.0-8.0) 01/16/19 10:36 Ur Specific [place] 1.032 (1.003-1.030) H 01/16/19 10:36 Urine Protein Negative mg/dL (NEGATIVE) 01/16/19 10:36 Urine Glucose (UA) 3+ mg/dL (Normal) H 01/16/19 10:36 Urine Ketones 2+ mg/dL (NEGATIVE) H 01/16/19 10:36 Urine Blood Negative (NEGATIVE) 01/16/19 10:36 Urine Nitrate Negative (NEGATIVE) 01/16/19 10:36 Urine Bilirubin Negative (NEGATIVE) 01/16/19 10:36 Urine Urobilinogen Normal mg/dL (0.2-1.0) 01/16/19 10:36 Ur Leukocyte Esterase Neg Angie/uL (Negative) 01/16/19 10:36 Urine WBC (Auto) 2 /hpf (0-5) 01/16/19 10:36 Urine RBC (Auto) < 1 /hpf (0-3) 01/16/19 10:36 Ur Squamous Epith Cells < 1 /hpf (0-5) 01/16/19 10:36 Hyaline Casts 3-5 /lpf (0-2) H 01/16/19 10:36 Urine Opiates Screen Negative (NEGATIVE) 01/16/19 11:53 Urine Methadone Screen Negative (NEGATIVE) 01/16/19 11:53 Ur Barbiturates Screen Negative (NEGATIVE) 01/16/19 11:53 Ur Phencyclidine Scrn Negative (NEGATIVE) 01/16/19 11:53 Ur Amphetamines Screen Negative (NEGATIVE) 01/16/19 11:53 U Benzodiazepines Scrn Negative (NEGATIVE) 01/16/19 11:53 U Oth Cocaine Metabols Negative (NEGATIVE) 01/16/19 11:53 U Cannabinoids Screen Negative (NEGATIVE) 01/16/19 11:53 Attending/Attestation - Attestation I have personally seen and examined this patient.: Yes I have fully participated in the care of the patient.: Yes I have reviewed all pertinent clinical information, including history, physical exam and plan: Yes Notes (Text): 01/21/19 12:36 This is a late entry. Care of this patient was gone over in detail with resident Dr. Valentina Wong. Miguelito Hoskins D.O.
--- NOTE | 2019-01-18 13:42 | CP.PCM.PCO ---
Physician Communication Note - Physician Communication Note Physician Communication Note: Please see above
--- NOTE | 2019-01-18 14:40 | PN ---
DATE: 01/18/2019 LOCATION: Room 369. SUBJECTIVE: This is a 43-year-old male with recent uncontrolled type 2 insulin-requiring diabetes of recent onset presenting here with marked hyperglycemic accelerations and is now being followed closely for metabolic management. His glucose levels overnight are still fluctuating and ranging from 281 to 358 mg/dL. LABORATORY DATA: His chemistry showed a BUN of 10, sodium 135, potassium 3.4, chloride 103, CO2 of 23, glucose 223, and creatinine 0.4. ASSESSMENT: This is a 43-year-old male with recent onset of uncontrolled type 2 insulin requiring diabetes with marked hyperglycemic accelerations and presenting here with hyperosmolar hyperglycemic state and dehydration and is now improving clinically and metabolically as noted therefore. PLAN OF MANAGEMENT: We will modify his basal insulin and increase the NPH to 20 units subcu at bedtime daily to start tonight. We will also continue the dual oral hypoglycemic therapy as given with glipizide given as 10 mg b.i.d. as ordered. We will increase the metformin to 850 mg b.i.d. after meals as ordered. We will obtain serial chemistries and supplement accordingly as needed. We will follow with you. Pili Haile MD
[2019-01-18] MEDS ORDERED: Pneumococcal 23-Valent Vaccine IM ONE (15:17)
[2019-01-18 16:04] VITALS: BP 136/81; PULSE 77; TEMP 98.4; O2SAT 96
[2019-01-18] MEDS ORDERED: (Novolin N) Insulin Human Isophane (NPH) 100 u/ml 10 ml vial SC SCH (22:00)
== END 2019-01-18 17:29 | disposition home or self-care (01) | DRG 420 ==
LOC: C.ER 09:45 → C.9E 11:23 → C.9I 11:51 → C.9E 15:35 → C.9I 15:41 → C.3T 01-17 16:58
PROVIDERS: ADMIT Family Medicine; ATTEND Family Medicine
DX: E11.00 Type 2 diabetes mellitus with hyperosmolarity without nonketotic hyperglycemic-hyperosmolar coma (NKHHC) (principal); I10 Essential (primary) hypertension; E11.10 Type 2 diabetes mellitus with ketoacidosis without coma; E86.0 Dehydration; Z79.4 Long term (current) use of insulin